=== PATIENT | female | born 1985 | race Caucasian/White ===

== ENCOUNTER 2020-11-06 17:20 | Emergency (ER) | payer OTHER, SELFPAY ==
[2020-11-06 17:42] VITALS: BP 112/54; BP 124/78; PULSE 86; PULSE 92; RESP 18; TEMP 36.9; O2SAT 98; O2SAT 99; BMI 29.5
--- NOTE | 2020-11-06 17:54 | ED_ITS ---
HPI - General Adult General Chief complaint: Overdose Stated complaint: od Time Seen by Provider: 11/06/20 17:44 Source: patient Mode of arrival: ambulatory Limitations: no limitations History of Present Illness HPI narrative: Patient comes to the emergency room after overdosing in a sober house. Patient states earlier this morning she used heroin and cocaine, she did not get the desired effect, later this afternoon she injected 2 bags of heroin. Patient states that after the 2nd bag, she started feeling very sick, she knew that she had overdosed. Patient tried walking towards the bathroom wall were it is known that there is Narcan taped to the wall, patient tried spring Narcan on herself, but she passed out before. Patient was found by another resident of the sober house. She got 1 dose of intranasal Narcan at the sober house, by the time EMS arrived, the patient was awake and alert. Patient states it was an accident, denies suicidal or homicidal ideation MD complaint: Overdose Related Data Previous Rx's Medication Instructions Recorded clonidine HCl 0.1 mg tablet 0.1 mg PO TID #90 tab 09/07/20 oxcarbazepine 300 mg tablet 300 mg PO BID #180 tab 09/07/20 Allergies Allergy/AdvReac Type Severity Reaction Status Date / Time No Known Allergies Allergy Verified 09/28/20 13:58 Review of Systems Review of Systems: Constitutional : No Weight loss, No Fever, No Chills, No Night Sweats, No Fatigue, No Malaise ENT/Mouth : No Hearing loss, No Ear Pain, No Nasal Congestion, No Sinus Pain, No Hoarseness, No sore throat, No Rhinorrhea, No Swallowing Difficulty Eyes: No Eye Pain, No Swelling, No Redness, No Foreign Body, No Discharge, No Vision Changes Cardiovascular : No Chest Pain, No SOB, No Dyspnea on Exertion, No Orthopnea, No Edema, No Palpitations Respiratory : No Cough, No Sputum, No Wheezing, No Smoke Exposure, No Dyspnea Gastrointestinal : Feeling mildly nauseous, No Vomiting, No Diarrhea, No Constipation, No abdominal Pain, No Hematochezia, No Melena Genitourinary : no irregular bleeding, No Dysuria, No Urinary Frequency, No Hematuria, No Urinary Incontinence, No Urgency, No Flank Pain, No Urinary Flow Changes, No Hesitancy Musculoskeletal : No joint pain, No Myalgias, No Joint Swelling Skin : No Skin Lesions, No rash Neuro : No Weakness, No Numbness, No Paresthesias, No Loss of Consciousness, No Dizziness, No Headache Psych : No Anxiety/Panic, No Depression, No SI/HI/AH/VH, No Social Issues, Heme/Lymph: No Bruising, No Bleeding,No Lymphadenopathy Endocrine : No Polyuria, No Polydipsia, No Temperature Intolerance PMF Past Medical History Medical History (Updated 11/06/20 @ 18:47 by Chula Kramer MD) Hepatitis C Substance abuse Family History Family History (Updated 09/28/20 @ 13:59 by Sharron Hill [facility]) Father Liver cancer Mother No problems noted. Family/Other Cancer Depression Social History Social History Advance Directives: No Advance Directives Information Provided: Yes Physical Exam Vital Signs: Vital Signs: Last Vital Signs Temp 98.4 F 11/06/20 17:42 Pulse 86 11/06/20 17:42 Resp 18 11/06/20 17:42 BP 112/54 L 11/06/20 17:42 Pulse Ox 99 11/06/20 17:42 Body Mass Index 29.5 Appearance: Alert. Oriented X3. No acute distress. Eyes: Pupils equal, round and reactive to light. ENT: Pharynx normal. Neck: Normal inspection. Neck supple. No lymph nodes noted. No crepitus CVS: Normal heart rate and rhythm. Pulses normal. Normal S1 and S2 Respiratory: No respiratory distress. Breath sounds normal. No Wheezing. No rales Abdomen: Soft and nontender. No rigidity. No distention. good BS x4 Skin: Skin warm and dry. Normal skin color. Normal skin turgor. Extremities: No lower extremity edema. No lower extremity edema. No Lacerations. No Rash Neuro: Oriented X 3. No motor deficit. No sensory deficit. Moving all extermities. No slurred speech. Course Course Course Narrative: Patient remains awake, alert, oxygen saturation 98% on room air, vital stable. The manager recovery talked to the patient. Patient was provided with home Narcan. Patient ready for discharge Discharge Plan Discharge Clinical Impression: Substance abuse Drug overdose Qualifiers: Encounter type: initial encounter Injury intent: accidental or unintentional Qualified Code(s): T50.901A - Poisoning by unspecified drugs, medicaments and biological substances, accidental (unintentional), initial encounter Patient Disposition: Home, Self-Care Instructions: Adult Overdose (ED) Additional Instructions: Please stop using drugs. Please follow-up with your primary care physician tomorrow. If you have any worsening or new symptoms, please return to the emergency room or call 911 Prescriptions: No Action clonidine HCl 0.1 mg tablet 0.1 mg PO TID Qty: 90 RF: 12 oxcarbazepine 300 mg tablet 300 mg PO BID Qty: 180 RF: 8
[2020-11-06 19:03] VITALS: BP 110/67; PULSE 90; RESP 16; O2SAT 99
--- NOTE | 2020-11-06 19:21 | MHC.RECOVSUP ---
Reason for consult o Current location: ED#17 o Identified substance use concern: Opioid - Overdose - - - ? Intervention: o o o Community resources provided o Harm reduction discussion ? Plan: o o o o o Patient to follow up with [facility] after discharge ? Additional information:pt came in after having an overdose in her residential program. I was able to call and speak w/ staff there and they were willing to take pt back. provided pt with recovery resource.
[2020-11-06] MEDS: Naloxone HCl Nasal 4 MG SPRAY NOSTRILALT (19:31)
--- NOTE | 2020-11-06 19:31 | PC.NURSE ---
nasal narcan was take home order, given to patient.
== END 2020-11-06 19:31 | disposition home or self-care (01) ==
PROVIDERS: Emergency Provider Emergency Medicine; PCP Internal Medicine
DX: T40.1X1A Poisoning by heroin, accidental (unintentional), initial encounter (principal); F11.19 Opioid abuse with unspecified opioid-induced disorder; Z71.51 Drug abuse counseling and surveillance of drug abuser; Z79.899 Other long term (current) drug therapy
CPT/HCPCS: 99283

== ENCOUNTER 2021-04-04 16:22 | Outpatient (REF) | payer OTHER, SELFPAY ==
[2021-04-04 18:08] LABS: Amphetamine Screen Urine Not Detected (Not Detect); Barbiturates, Urine Not Detected (Not Detect); Benzodiazepines Screen Urine Not Detected (Not Detect); Cannabinoid Screen Urine Not Detected (Not Detect); Cocaine Screen Urine Not Detected (Not Detect); Opiate Screen Urine Not Detected (Not Detect); Phencyclidine Screen Urine Not Detected (Not Detect)
== END 2021-04-04 16:23 | disposition home or self-care (01) ==
LOC: HO.LAB 16:22
PROVIDERS: PCP Internal Medicine; Visit Provider Internal Medicine
DX: Z51.81 Encounter for therapeutic drug level monitoring (principal)
CPT/HCPCS: 80307

== ENCOUNTER 2021-05-02 23:54 | Inpatient (IN) | payer OTHER, SELFPAY ==
[2021-05-03 00:07] VITALS: BP 128/69; PULSE 94; RESP 20; TEMP 35.8; O2SAT 95; BMI 27.7
--- NOTE | 2021-05-03 00:47 | ED_ITS ---
HPI - Psych General Chief Complaint: Psychiatric Symptoms Stated Complaint: suicidal, infection on arms Time Seen by Provider: 05/03/21 00:36 Source: patient Mode of arrival: ambulatory Limitations: no limitations History of Present Illness HPI Narrative: Patient comes to emergency room complaining of suicidal ideation. Patient states that she has been feeling depressed, states that she has thought throughout the day that she was to inject herself with each. Patient did not do so. Patient has been off her medications since at least October of 2020. States her prescribed medications before that were not helping her with the depression. Patient denies homicidal ideation Also, it was noted that the patient has cellulitis in her arms. Patient states it has been ongoing for several days now. Patient denies fever chills MD complaint: suicidal ideation and feels depressed Related Data Home Medications Medication Instructions Recorded Confirmed buprenorphine 4 mg-naloxone 1 mg 0 mg SUBLINGUAL 11/30/20 sublingual film bupropion HCl 150 mg 24 hr tablet, 150 mg PO QAM 11/30/20 extended release gabapentin 300 mg capsule 300 mg PO PRN 11/30/20 nicotine 14 mg/24 hr daily 1 patch TOPICAL DAILY 11/30/20 transdermal patch trazodone 100 mg tablet 100 mg PO BEDTIME 11/30/20 Previous Rx's Medication Instructions Recorded clonidine HCl 0.1 mg tablet 0.1 mg PO TID #90 tab 09/07/20 oxcarbazepine 300 mg tablet 300 mg PO BID #180 tab 09/07/20 nicotine (polacrilex) 4 mg gum 4 mg BUCCAL Q1H #100 ea 11/23/20 Allergies Allergy/AdvReac Type Severity Reaction Status Date / Time No Known Allergies Allergy Verified 11/30/20 15:03 Review of Systems Review of Systems: Constitutional : No Weight loss, No Fever, No Chills, No Night Sweats, No Fatigue, No Malaise ENT/Mouth : No Hearing loss, No Ear Pain, No Nasal Congestion, No Sinus Pain, No Hoarseness, No sore throat, No Rhinorrhea, No Swallowing Difficulty Eyes: No Eye Pain, No Swelling, No Redness, No Foreign Body, No Discharge, No Vision Changes Cardiovascular : No Chest Pain, No SOB, No Dyspnea on Exertion, No Orthopnea, No Edema, No Palpitations Respiratory : No Cough, No Sputum, No Wheezing, No Smoke Exposure, No Dyspnea Gastrointestinal : No Nausea, No Vomiting, No Diarrhea, No Constipation, No abdominal Pain, No Hematochezia, No Melena Genitourinary : no irregular bleeding, No Dysuria, No Urinary Frequency, No Hematuria, No Urinary Incontinence, No Urgency, No Flank Pain, No Urinary Flow Changes, No Hesitancy Musculoskeletal : No joint pain, No Myalgias, No Joint Swelling Skin : Complaining of pain in her forearms bilaterally, redness Neuro : No Weakness, No Numbness, No Paresthesias, No Loss of Consciousness, No Dizziness, No Headache Psych : No Anxiety/Panic, complaining of chronic depression, contemplating suicidal ideation by injecting herself with bleach, no HI Heme/Lymph: No Bruising, No Bleeding,No Lymphadenopathy Endocrine : No Polyuria, No Polydipsia, No Temperature Intolerance PMFSH Past Medical History Medical History Hepatitis C Substance abuse Surgical History No significant past surgical history Family History Family History (Updated 09/28/20 @ 13:59 by Sharron Hill [facility]) Father Liver cancer Mother No problems noted. Family/Other Cancer Depression Social History Social History (Updated 11/30/20 @ 15:05 by X[facility]) Alcohol intake: never Advance Directives: No Advance Directives Information Provided: No Patient : No Physical Exam Vital Signs: Vital Signs: Last Vital Signs Temp 96.5 F L 05/03/21 00:07 Pulse 94 05/03/21 00:07 Resp 20 05/03/21 00:07 BP 128/69 05/03/21 00:07 Pulse Ox 95 05/03/21 00:07 Body Mass Index 27.7 Appearance: Alert. Oriented X3. No acute distress. Eyes: Pupils equal, round and reactive to light. ENT: Pharynx normal. Neck: Normal inspection. Neck supple. No lymph nodes noted. No crepitus, see skin below CVS: Normal heart rate and rhythm. Pulses normal. Normal S1 and S2 Respiratory: No respiratory distress. Breath sounds normal. No Wheezing. No rales Abdomen: Soft and nontender. No rigidity. No distention. good BS x4 Skin: Skin warm and dry. Needle track velazco in the neck See extremities below Extremities: No lower extremity edema. Patient has erythema in bilateral forearms, needle track velazco. Patient has cellulitis, no obvious abscesses. Patient also has needle track velazco in both of her lower extremities at the ankles Neuro: Oriented X 3. No motor deficit. No sensory deficit. Moving all extermities. No slurred speech. Course Course Course Narrative: Patient does not have fever, white blood cell count within normal limits, lactic acid normal. At this time, sepsis is not suspected. Patient was given the 1st dose of Bactrim. Patient will need scheduled back. Patient is under Section 12 due to suicidal ideation. [facility] consult pending. Senna given to Dr. Fisher [facility] - Psych Lab Data Result diagrams: 05/03/21 01:12 05/03/21 01:12 Labs: Lab Results 05/03/21 05/03/21 05/03/21 Range/Units 00:31 00:31 00:31 WBC (4.8-10.8) X10*3/uL RBC (4.20-5.50) X10*6/uL Hgb (12.0-16.0) g/dl Hct (37-47) % MCV (80-98) fL MCH (27.0-33.0) pg MCHC (31.0-35.0) g/dl RDW (11.0-16.0) % Plt Count (160-400) X10*3/uL MPV (9.4-12.3) fL Immature Gran % (Auto) (0.0-0.4) % Neut % (Auto) (45-73) % Lymph % (Auto) (20-40) % [place] % (Auto) (2-11) % Eos % (Auto) (0-4) % Baso % (Auto) (0-2) % Lymph # (Auto) (1.2-4.9) X10*3/uL [place] # (Auto) (0.1-1.2) X10*3/uL Eos # (Auto) (0.0-0.4) X10*3/uL Baso # (Auto) (0.0-0.2) X10*3/uL Abs Immat Gran (auto) (0.00-0.03) X10*3/uL Absolute Neuts (auto) (2.0-8.3) X10*3/uL Absolute Nucleated RBC (0.0-0.012) X10*3/uL Nucleated RBC % (auto) (0.0-0.2) /100WBC Sodium (135-145) mmol/L Potassium (3.3-5.1) mmol/L Chloride (96-108) mmol/L Carbon Dioxide (22-29) mmol/L Anion Gap (12-20) BUN (9-16) mg/dL Creatinine (0.5-1.4) mg/dL Estim Creat Clear Calc Estimated GFR Random Glucose (60-115) mg/dL Lactic Acid (0.5-2.0) mmol/L Calcium (8.4-10.2) mg/dL Magnesium (1.6-2.6) mg/dL Total Bilirubin (0.0-1.0) mg/dL Direct Bilirubin (0.0-0.5) mg/dL AST (5-31) U/L ALT (0-31) U/L Alkaline Phosphatase (39-117) U/L Total Protein (6.5-8.0) g/dL Albumin (3.5-5.0) g/dL Urine Color YELLOW Urine Appearance HAZY Urine pH 6.0 (5.0-8.0) Ur Specific [place] >= 1.030 H (1.005-1.025) Urine Protein TRACE (NEG-TRACE) MG/DL Urine Glucose (UA) NEG (NEG) MG/DL Urine Ketones 5 (NEG) MG/DL Urine Blood NEG (NEG) Urine Nitrite NEG (NEG) Ur Leukocyte Esterase NEG (NEG) Urine Test NEGATIVE (NEGATIVE) Urine Opiates Screen POSITIVE H (Not Detect) Ur Barbiturates Screen Not Detected (Not Detect) Ur Phencyclidine Scrn Not Detected (Not Detect) Ur Amphetamines Screen Not Detected (Not Detect) U Benzodiazepines Scrn Not Detected (Not Detect) Urine Cocaine Screen POSITIVE H (Not Detect) U Marijuana (THC) Screen POSITIVE H (Not Detect) COVID-19 (JOAO) (Negative) COVID-19 Clin Com 05/03/21 05/03/21 05/03/21 Range/Units 00:41 01:12 01:12 WBC 7.8 (4.8-10.8) X10*3/uL RBC 4.00 L (4.20-5.50) X10*6/uL Hgb 11.0 L (12.0-16.0) g/dl Hct 34.7 L (37-47) % MCV 86.8 (80-98) fL MCH 27.5 (27.0-33.0) pg MCHC 31.7 (31.0-35.0) g/dl RDW 14.0 (11.0-16.0) % Plt Count 251 (160-400) X10*3/uL MPV 9.6 (9.4-12.3) fL Immature Gran % (Auto) 0.4 (0.0-0.4) % Neut % (Auto) 69.1 (45-73) % Lymph % (Auto) 23.3 (20-40) % [place] % (Auto) 6.0 (2-11) % Eos % (Auto) 0.9 (0-4) % Baso % (Auto) 0.3 (0-2) % Lymph # (Auto) 1.8 (1.2-4.9) X10*3/uL [place] # (Auto) 0.5 (0.1-1.2) X10*3/uL Eos # (Auto) 0.1 (0.0-0.4) X10*3/uL Baso # (Auto) 0.0 (0.0-0.2) X10*3/uL Abs Immat Gran (auto) 0.03 (0.00-0.03) X10*3/uL Absolute Neuts (auto) 5.4 (2.0-8.3) X10*3/uL Absolute Nucleated RBC 0.000 (0.0-0.012) X10*3/uL Nucleated RBC % (auto) 0.0 (0.0-0.2) /100WBC Sodium 139 (135-145) mmol/L Potassium 3.7 (3.3-5.1) mmol/L Chloride 103 (96-108) mmol/L Carbon Dioxide 27 (22-29) mmol/L Anion Gap 13 (12-20) BUN 12 (9-16) mg/dL Creatinine 0.75 (0.5-1.4) mg/dL Estim Creat Clear Calc 88.5 Estimated GFR > 60 Random Glucose 118 H (60-115) mg/dL Lactic Acid (0.5-2.0) mmol/L Calcium 9.1 (8.4-10.2) mg/dL Magnesium 2.2 (1.6-2.6) mg/dL Total Bilirubin (0.0-1.0) mg/dL Direct Bilirubin (0.0-0.5) mg/dL AST (5-31) U/L ALT (0-31) U/L Alkaline Phosphatase (39-117) U/L Total Protein (6.5-8.0) g/dL Albumin (3.5-5.0) g/dL Urine Color Urine Appearance Urine pH (5.0-8.0) Ur Specific [place] (1.005-1.025) Urine Protein (NEG-TRACE) MG/DL Urine Glucose (UA) (NEG) MG/DL Urine Ketones (NEG) MG/DL Urine Blood (NEG) Urine Nitrite (NEG) Ur Leukocyte Esterase (NEG) Urine Test (NEGATIVE) Urine Opiates Screen (Not Detect) Ur Barbiturates Screen (Not Detect) Ur Phencyclidine Scrn (Not Detect) Ur Amphetamines Screen (Not Detect) U Benzodiazepines Scrn (Not Detect) Urine Cocaine Screen (Not Detect) U Marijuana (THC) Screen (Not Detect) COVID-19 (JOAO) Negative (Negative) COVID-19 Clin Com See Note 05/03/21 05/03/21 Range/Units 01:12 01:12 WBC (4.8-10.8) X10*3/uL RBC (4.20-5.50) X10*6/uL Hgb (12.0-16.0) g/dl Hct (37-47) % MCV (80-98) fL MCH (27.0-33.0) pg MCHC (31.0-35.0) g/dl RDW (11.0-16.0) % Plt Count (160-400) X10*3/uL MPV (9.4-12.3) fL Immature Gran % (Auto) (0.0-0.4) % Neut % (Auto) (45-73) % Lymph % (Auto) (20-40) % [place] % (Auto) (2-11) % Eos % (Auto) (0-4) % Baso % (Auto) (0-2) % Lymph # (Auto) (1.2-4.9) X10*3/uL [place] # (Auto) (0.1-1.2) X10*3/uL Eos # (Auto) (0.0-0.4) X10*3/uL Baso # (Auto) (0.0-0.2) X10*3/uL Abs Immat Gran (auto) (0.00-0.03) X10*3/uL Absolute Neuts (auto) (2.0-8.3) X10*3/uL Absolute Nucleated RBC (0.0-0.012) X10*3/uL Nucleated RBC % (auto) (0.0-0.2) /100WBC Sodium (135-145) mmol/L Potassium (3.3-5.1) mmol/L Chloride (96-108) mmol/L Carbon Dioxide (22-29) mmol/L Anion Gap (12-20) BUN (9-16) mg/dL Creatinine (0.5-1.4) mg/dL Estim Creat Clear Calc Estimated GFR Random Glucose (60-115) mg/dL Lactic Acid 0.6 (0.5-2.0) mmol/L Calcium (8.4-10.2) mg/dL Magnesium (1.6-2.6) mg/dL Total Bilirubin 0.5 (0.0-1.0) mg/dL Direct Bilirubin 0.2 (0.0-0.5) mg/dL AST 18 (5-31) U/L ALT 11 (0-31) U/L Alkaline Phosphatase 78 (39-117) U/L Total Protein 6.7 (6.5-8.0) g/dL Albumin 4.1 (3.5-5.0) g/dL Urine Color Urine Appearance Urine pH (5.0-8.0) Ur Specific [place] (1.005-1.025) Urine Protein (NEG-TRACE) MG/DL Urine Glucose (UA) (NEG) MG/DL Urine Ketones (NEG) MG/DL Urine Blood (NEG) Urine Nitrite (NEG) Ur Leukocyte Esterase (NEG) Urine Test (NEGATIVE) Urine Opiates Screen (Not Detect) Ur Barbiturates Screen (Not Detect) Ur Phencyclidine Scrn (Not Detect) Ur Amphetamines Screen (Not Detect) U Benzodiazepines Scrn (Not Detect) Urine Cocaine Screen (Not Detect) U Marijuana (THC) Screen (Not Detect) COVID-19 (JOAO) (Negative) COVID-19 Clin Com Discharge Plan Discharge Clinical Impression: Suicidal ideation, Cellulitis Instructions: Cellulitis (ED) Additional Instructions: Please follow-up with your primary care physician tomorrow. If you have any worsening or new symptoms, please return to the emergency room or call 911 Prescriptions: No Action clonidine HCl 0.1 mg tablet 0.1 mg PO TID Qty: 90 RF: 12 oxcarbazepine 300 mg tablet 300 mg PO BID Qty: 180 RF: 8 nicotine (polacrilex) [Nicorette] 4 mg gum 4 mg buccal Q1H Qty: 100 RF: 8 buprenorphine-naloxone 4-1 mg film 0 mg sublingual RF: 0 gabapentin 300 mg capsule 300 mg PO PRNRF: 0 nicotine 14 mg/24 hr patch 24 hour 1 patch topical DAILY RF: 0 bupropion HCl 150 mg tablet extended release 24 hr 150 mg PO QAM RF: 0 trazodone 100 mg tablet 100 mg PO BEDTIME RF: 0
[2021-05-03 00:51] LABS: Glucose Urine UA NEG (NEG); Leukocyte Esterase Urine NEG (NEG); Nitrite Urine NEG (NEG); Specific Gravity - Urine >= 1.030 (1.005-1.025); Urine Blood NEG (NEG); Urine Ketones 5 MG/DL (NEG); Urine Protein TRACE MG/DL (NEG-TRACE)
[2021-05-03 00:52] LABS: Appearance Urine HAZY; Color Urine YELLOW; UACC CULT NO
[2021-05-03 00:53] LABS: UPreg QC Valid YES; Urine Pregnancy NEGATIVE (NEGATIVE)
[2021-05-03 01:02] LABS: COVID-19 Test Negative (Negative); IDNOW Serial# 9DD0AD1C
[2021-05-03 01:20] LABS: Amphetamine Screen Urine Not Detected (Not Detect); Barbiturates, Urine Not Detected (Not Detect); Benzodiazepines Screen Urine Not Detected (Not Detect); Cannabinoid Screen Urine POSITIVE (Not Detect); Cocaine Screen Urine POSITIVE (Not Detect); Opiate Screen Urine POSITIVE (Not Detect); Phencyclidine Screen Urine Not Detected (Not Detect)
[2021-05-03 01:20] LABS: Basophils Percent Auto 0.3 % (0-2); Eosinophils Absolute Auto 0.1 X10*3/uL (0.0-0.4); Eosinophils Percent Auto 0.9 % (0-4); Hematocrit 34.7 % (37-47); Imm Gran Abs Auto 0.03 X10*3/uL (0.00-0.03); Imm Gran Pct Auto 0.4 % (0.0-0.4); Lymphocytes Absolute Auto 1.8 X10*3/uL (1.2-4.9); Lymphocytes Percent Auto 23.3 % (20-40); MANUAL DIFF FLAG NO; Mean Corpuscular HGB Conc 31.7 g/dl (31.0-35.0); Mean Corpuscular Hemoglobin 27.5 pg (27.0-33.0); Mean Corpuscular Volume 86.8 fL (80-98); Mean Platelet Volume 9.6 fL (9.4-12.3); Monocytes Absolute Auto 0.5 X10*3/uL (0.1-1.2); Neutrophils Absolute Auto 5.4 X10*3/uL (2.0-8.3); Neutrophils Percent Auto 69.1 % (45-73); Platelet Count 251 X10*3/uL (160-400); White Blood Count 7.8 X10*3/uL (4.8-10.8)
[2021-05-03 01:37] LABS: Lactic Acid 0.6 mmol/L (0.5-2.0)
--- NOTE | 2021-05-03 01:39 | PC.NURSE ---
Referral was sent to [facility] via smart-sheet, called to confirm the receipt of referral, spoke with Andrew/confirmed receipt of referral, no clinician available for tonight, patient will evaluated in the morning, Bactrim administered as ordered, will continue to monitor.
[2021-05-03 01:42] LABS: Alanine Aminotransferase 11 U/L (0-31); Albumin Level 4.1 g/dL (3.5-5.0); Alkaline Phosphatase 78 U/L (39-117); Aspartate Amino Transferase 18 U/L (5-31); Bilirubin Direct 0.2 mg/dL (0.0-0.5); Bilirubin Total 0.5 mg/dL (0.0-1.0); Total Protein 6.7 g/dL (6.5-8.0)
[2021-05-03 01:53] LABS: Anion Gap 13 (12-20); Blood Urea Nitrogen 12 mg/dL (9-16); Calcium 9.1 mg/dL (8.4-10.2); Carbon Dioxide 27 mmol/L (22-29); Chloride 103 mmol/L (96-108); Creatinine Clr Calc Pharmacy 88.5; Estimated Glomerular Filt Rate > 60; Glucose Random 118 mg/dL (60-115); Magnesium 2.2 mg/dL (1.6-2.6); Potassium 3.7 mmol/L (3.3-5.1); Sodium 139 mmol/L (135-145)
[2021-05-03 02:09] LABS: RBC Urine 0 /HPF (0); Squamous Epithelial Cell Urine 3+ /LPF; WBC Urine 0-2 /HPF (0-4)
[2021-05-03 02:10] LABS: Amorphous Sediment Urine 4+ /LPF
[2021-05-03 02:10] LABS: Ethanol < 10 mg/dL
--- NOTE | 2021-05-03 06:03 | PC.NURSE ---
Patient finally in bed appears sleeping, patient was up until 0530 am, no distress was reported, awaiting to be seen by N, will continue to monitor.
[2021-05-03 07:25] VITALS: BP 106/59; PULSE 81; RESP 18; TEMP 36.3; O2SAT 96
[2021-05-03 08:48] VITALS: PULSE 81
[2021-05-03] MEDS: LORazepam 1 MG TABLET 2 MG PO ×2 (09:04→20:21)
--- NOTE | 2021-05-03 09:07 | PC.NURSE ---
Pt refused suboxone, said she can not take it right now, and needs to wait a while before she can take it. Pt informed that ED does not prescribe methadone, which pt was agreeable to. Accepting of ativan (see Mar). Cellulitis on bilat. anticubitals warm to touch, pink, slightly swollen, tender when lightly touched. Pt resting in bed, waiting to be seen by BHN.
--- NOTE | 2021-05-03 10:44 | PC.NURSE ---
Pt asleep at current. No signs of distress. RR even and unlabored.
--- NOTE | 2021-05-03 11:28 | PC.NURSE ---
PT REQUESTING FOOD, WAS UNABLE TO EAT BREAKFAST THIS AM. GIVEN CRACKERS AND PB. JUST SEEN BY CARE TEAM. PT REPORTS EXPERIENCING WD SXS, REFUSED SUBOXONE OFFERED. RECOVERY TEAM AT BEDSIDE AT THIS TIME.
--- NOTE | 2021-05-03 11:45 | MHC.RECOVRN ---
T/w met with pt in [facility] after pt had declined Suboxone for withdrawal symptoms. Pts last use 05/02 approx 7PM. Pt reports using heroin, 2 bundles daily, IV, as well as $500 cocaine daily, IV since last March. At that time she had received Suboxone 3 days after last use and experienced precipitated withdrawal. Pt prefers methadone to help with withdrawal symptoms. Currently, COWS 15. Pt is flushed, restless, anxiousm and reports body aches and diarrhea. Case discussed with pts RN, Jeniffer BALDERAS, as well as Lacie Vincent APRN.
--- NOTE | 2021-05-03 11:55 | MHC.RECOVSUP ---
Recovery Support note: Patient is 35 year old Turkmen speaking female who presented to [facility] ED reporting SI with a plan and recent heroin and cocaine use. CARE Team attempted to do a crisis evaluation however patient was unable to engage due withdrawal symptoms and level of drowsiness. This parts data writer met with patient to discuss withdrawal management. Patient reports last use of heroin and cocaine on 05/02 around 1999. Patient reports she does not want to take Suboxone due to experiencing precipitated withdrawal in the past. Patient reports she took a small amount of Suboxone on M5 after 3 days of not using and experienced precipitated withdrawal. Patient reports she is agreeable to receiving methadone. Plan for Recovery Support Nurse to follow up with patient. This parts data writer discussed case with the Recovery Support Team and CARE Team.
[2021-05-03 15:03] VITALS: BP 107/55; PULSE 76; O2SAT 96
--- NOTE | 2021-05-03 16:39 | MHC.RECOVSUP ---
Recovery Support note: This flex o writer operator checked in with patient to discuss withdrawal symptoms. Patient reports significant improvement from this morning. States she feels a bit sweaty but that is her only symptom. Patient reports at this time she is not interested in continuing methadone maintenance after discharge and that she only wants it for detox. Discussed case with Lacie Vincent NP.
--- NOTE | 2021-05-03 17:22 | P.EN_ITS ---
Event Note Date of Service: 05/03/21 Event Note: Addiction note: Patient is a 35yo female with opioid use disorder awaiting psychiatric admission. Seen by RS RN earlier in the AM and noted to be in acute withdrawal (please see recovery support team notes for further details) Pt prefers methadone d/t hx of precipitated withdrawal with buprenorphine. 10mg methadone administered earlier this AM with good effect. N/V stopped. Pt seen this afternoon and noted to be diaphoretic, still experiencing joint pain and involuntary leg movements noted while patient was asleep. Pt verbalizing that she does not wish to continue methadone detention, and would like to be tapered only. Plan: -additional 10mg methadone this evening (total of 20mg) -monitor for oversedation and hold PM dose if necessary - 10mg in AM tomorrow -5mg the following day
[2021-05-03 19:57] VITALS: BP 107/65; PULSE 75; RESP 18; TEMP 36.8; O2SAT 97
[2021-05-03 20:54] VITALS: BP 112/62; PULSE 82; RESP 16; TEMP 36.5; O2SAT 97
--- NOTE | 2021-05-03 23:13 | PC.ADMIT ---
Addendum entered by Joy Chilel RN 05/03/21 23:28: PT. IS ON A COWS, SHE CURRENTLY DISPLAYS WITHDRAWAL SYMPTOMS, PRN'S AVAILABLE Original Note: PT. IS A 35 YEAR OLD WHITE PERSIAN SPEAKING FEMALE WHO PRESENTS TO M 5 FROM THE [facility] ED AT APPROX. 21:45 ON A CV STATUS. PT. IS COVID NEG., UTOX POS. FOR OPIOIDS, CANNABIS AND COCAINE. PT. HAS A HX OF IV HEROIN USE, SHE WAS LAST ON M 5 IN JUNE 2020. PT. BROUGHT HERSELF TO THE [facility] ED WITH THOUGHTS OF INJECTING BLEACH INTO HER VEINS. PT. DENIED SI AT PRESENT TIME, HER AFFECT WAS FLAT, SHE WAS FATIGUED, DEPRESSED AND TOO TIRED TO COMPLETE ADMISSION PROCESS. PT.'S BILATERAL LOWER ARMS ARE INFECTED DUE TO IV DRUG INJECTIONS, SHE HAS STARTED ANTIBIOTICS FOR HER WOUNDS YESTERDAY IN THE ED. PT. IS A SMOKER, NICOTINE REPLACEMENT ORDERED. PT. IS ON 15 MIN. SAFETY CHECKS, SHE REPORTED TO FEEL SAFE ON UNIT. MEDICATION ORDERS RECEIVED FROM DOC, PT. KNOWS THE UNIT AND DID NOT NEED AN ORIENTATION. VS, STABLE.
[2021-05-04 08:54] LABS: Alanine Aminotransferase 8 U/L (0-31); Albumin Level 3.6 g/dL (3.5-5.0); Alkaline Phosphatase 67 U/L (39-117); Anion Gap 11 (12-20); Aspartate Amino Transferase 14 U/L (5-31); Bilirubin Direct 0.2 mg/dL (0.0-0.5); Bilirubin Total 0.3 mg/dL (0.0-1.0); Blood Urea Nitrogen 13 mg/dL (9-16); Calcium 8.8 mg/dL (8.4-10.2); Carbon Dioxide 25 mmol/L (22-29); Chloride 109 mmol/L (96-108); Creatinine Clr Calc Pharmacy 89.7; Estimated Glomerular Filt Rate > 60; Glucose Fasting 93 mg/dL (60-99); Potassium 4.4 mmol/L (3.3-5.1); Sodium 141 mmol/L (135-145)
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
[2021-05-04 16:27] VITALS: RESP 14
[2021-05-05 06:00] VITALS: BP 106/56; PULSE 66; RESP 12; TEMP 36.3; O2SAT 99
[2021-05-05 07:54] VITALS: BP 95/54; PULSE 78; RESP 18; TEMP 36.2; O2SAT 99
--- NOTE | 2021-05-05 08:05 | HO.PSYCHPN ---
Subjective Subjective Date of Service: 05/05/21 Reason For Visit: Depression Subjective Notes: Conditional Voluntary Interim History: Patient was seen in rounds today. She has been exhibiting withdrawal symptoms and the methadone continues to be helpful. Additional medications including clonidine 0.1 mg t.i.d. p.r.n., Imodium 2 mg Q 4 hours p.r.n. and Vistaril 25 mg q.6 p.r.n. were ordered. She denies any side effects. Eating and sleeping adequately. No SI. No other changes were made. Current medications and labs were reviewed. Medication Compliance: Yes Side effects from medications: No Attending Groups: Intermittent Review of Systems Acute medical concerns: No Medical Review of Systems: unchanged Review of Systems: Review of systems is negative by system except for sinus symptoms of opiate withdrawal Mental Status Exam Mental Status Exam Narrative: Patient was seen on rounds today. She is alert, oriented and pleasant. Soft-spoken speech. Moderate eye contact. Affect is appropriate and contained. Moderate anxiety present. No signs of psychosis. No SI. Cognitively intact. Judgment is intact Depressive Symptoms: Increased Anxiety Diagnostics Vital Signs (24Hr): Vital Signs - 24 hr 05/04/21 16:27 05/05/21 06:00 05/05/21 07:54 Temperature 97.4 F 97.2 F Pulse Rate 66 78 Respiratory Rate 14 12 18 Blood Pressure 106/56 L 95/54 L Pulse Oximetry 99 99 Body Mass Index 27.7 Labs Results: 05/03/21 01:12 05/04/21 08:00 Labs: Laboratory Results - last 48 hr 05/04/21 08:00 Sodium 141 Potassium 4.4 Chloride 109 H Carbon Dioxide 25 Anion Gap 11 L BUN 13 Creatinine 0.74 Estim Creat Clear Calc 89.7 Estimated GFR > 60 Fasting Glucose 93 Calcium 8.8 Total Bilirubin 0.3 Direct Bilirubin 0.2 AST 14 ALT 8 Alkaline Phosphatase 67 Total Protein 6.0 L Albumin 3.6 Medications Medications Current Medications Generic Name Dose Route Start Last Admin Trade Name Freq PRN Reason Stop Dose Admin Acetaminophen 650 mg 05/03/21 20:54 Acetaminophen 325 Mg Tablet PO Q6H PRN Headache/Pain Mild Scale (1-3) Al Hydroxide/Mg Hydroxide 30 ml 05/03/21 20:54 Magnesium Hydrox/Alum Hydrox 30 Ml Oral.Susp PO Q6H PRN Heartburn/Nausea Hydroxyzine HCl 25 mg 05/03/21 20:54 Hydroxyzine Hcl 25 Mg Tablet PO BEDTIME PRN Anxiety Magnesium Hydroxide 30 ml 05/03/21 20:54 Milk Of Magnesia 30 Ml Oral.Susp PO DAILY PRN Constipation Methadone HCl 10 mg 05/05/21 10:00 Methadone Hcl 1 Mg/0.1 Ml Oral.Conc PO 05/05/21 10:01 ONCE@1000 CARROLL Methadone HCl 5 mg 05/06/21 10:00 Methadone Hcl 5 Mg Tablet PO 05/06/21 10:01 ONCE@1000 CARROLL Trazodone HCl 100 mg 05/03/21 20:54 Trazodone Hcl 100 Mg Tablet PO BEDTIME PRN Insomnia Allergies Allergies Allergy/AdvReac Type Severity Reaction Status Date / Time No Known Allergies Allergy Verified 11/30/20 15:03 Assessment & Plan Assessment & Plan (1) MDD (major depressive disorder), recurrent episode, severe: Qualifiers: Psychotic features: without psychotic features Qualified Code(s): F33.2 - Major depressive disorder, recurrent severe without psychotic features Status: Acute Code(s): F33.2 - Major depressive disorder, recurrent severe without psychotic features (2) Opioid use disorder: Status: Acute Code(s): F11.99 - Opioid use, unspecified with unspecified opioid-induced disorder (3) Opioid withdrawal: Status: Acute Code(s): F11.23 - Opioid dependence with withdrawal (4) Cocaine dependence with withdrawal: Status: Acute Code(s): F14.23 - Cocaine dependence with withdrawal (5) Chronic post-traumatic stress disorder (PTSD): Status: Acute Code(s): F43.12 - Post-traumatic stress disorder, chronic (6) Bulimia: Status: Acute Code(s): F50.2 - Bulimia nervosa Assessment and Plan: IMPRESSION: Patient is a he 35-year-old female with history of PTSD, bulimia depression and opiate and cocaine abuse who presents for depression and suicidal ideation in the face of ongoing substance abuse and being unmedicated. Patient is currently severely depressed, in both cocaine and opiate withdrawal currently resulting in her being a limited historian; interview was cut short by patient's emotions and follow-up discussion is needed to better assess for history of manic episode and possible bipolar depression. -patient agrees she is too exhausted and emotional to discuss medication treatment at this point however she would like to consider something for depression and is open to naltrexone, last use of heroin 05/03 Plan: Patient on CV Q 15 minutes checks Patient on methadone taper Will hold off starting medications for depression while she withdrawals further Will strongly consider mood stabilizer as an option given potential for history of manic episode and bipolar depression -patient became suicidal on Prozac -abused Wellbutrin -does not want any medication that causes weight gain given she is bulemic Greater than 50% of the session was spent on counseling and/or coordination of care Reason for contiued inpatient stay Substantial Risk for: harm to self
[2021-05-05] MEDS: hydrOXYzine HCL 25 MG TABLET PO (08:30)
[2021-05-05 16:00] VITALS: PULSE 62
[2021-05-05 16:05] VITALS: BP 111/68; PULSE 62; TEMP 36.6
[2021-05-06 08:20] VITALS: PULSE 80
--- NOTE | 2021-05-06 09:24 | P.PNPSI_ITS ---
Subjective Subjective Date of Service: 05/06/21 Reason For Visit: Depression Interim History: Patient was seen in rounds today. She continues to be isolative and on the [place] is. She is feeling more comfortable with regards to her detoxification. Eating a little better and sleeping a little better. No complaints or side effects. No changes were made today and we will continue the current plans Review of Systems Review of Systems Yes all other systems are reviewed and are negative Mental Status Exam Mental Status Exam Narrative: Patient was seen on rounds today. She is alert, oriented and pleasant. Soft-spoken speech. Moderate eye contact. Affect is appropriate and contained. Moderate anxiety present. No signs of psychosis. No SI. Cognitively intact. Judgment is intact Depressive Symptoms: Increased Anxiety Diagnostics Vital Signs (24Hr): Vital Signs - 24 hr 05/05/21 16:05 Temperature 97.8 F Pulse Rate 62 Blood Pressure 111/68 Body Mass Index 27.7 Labs Results: 05/03/21 01:12 05/04/21 08:00 Medications Medications Current Medications Generic Name Dose Route Start Last Admin Trade Name Floydq PRN Reason Stop Dose Admin Acetaminophen 650 mg 05/03/21 20:54 Acetaminophen 325 Mg Tablet PO Q6H PRN Headache/Pain Mild Scale (1-3) Al Hydroxide/Mg Hydroxide 30 ml 05/03/21 20:54 Magnesium Hydrox/Alum Hydrox 30 Ml Oral.Susp PO Q6H PRN Heartburn/Nausea Clonidine HCl 0.1 mg 05/05/21 08:01 Clonidine Hcl 0.1 Mg Tablet PO TID PRN Opiate Withdrawal Protocol Hydroxyzine HCl 25 mg 05/03/21 20:54 Hydroxyzine Hcl 25 Mg Tablet PO BEDTIME PRN Anxiety Hydroxyzine HCl 25 mg 05/05/21 08:01 05/05/21 08:30 Hydroxyzine Hcl 25 Mg Tablet PO 25 mg Q6H PRN Administration Anxiety Loperamide HCl 2 mg 05/05/21 08:01 Loperamide Hcl 2 Mg Capsule PO Q4H PRN Diarrhea Magnesium Hydroxide 30 ml 05/03/21 20:54 Milk Of Magnesia 30 Ml Oral.Susp PO DAILY PRN Constipation Methadone HCl 5 mg 05/06/21 10:00 05/06/21 08:20 Methadone Hcl 1 Mg/0.1 Ml Oral.Conc PO 05/06/21 10:01 5 mg ONCE@1000 CARROLL Administration Trazodone HCl 100 mg 05/03/21 20:54 Trazodone Hcl 100 Mg Tablet PO BEDTIME PRN Insomnia Trimethoprim/Sulfamethoxazole 1 tab 05/05/21 09:00 05/06/21 08:19 Sulfamethox/Trimeth 800/160 1 Tab Tablet PO 05/08/21 08:59 1 tab Q12H CARROLL Administration Allergies Allergies Allergy/AdvReac Type Severity Reaction Status Date / Time No Known Allergies Allergy Verified 11/30/20 15:03 Assessment & Plan Assessment & Plan (1) MDD (major depressive disorder), recurrent episode, severe: Qualifiers: Psychotic features: without psychotic features Qualified Code(s): F33.2 - Major depressive disorder, recurrent severe without psychotic features Status: Acute Code(s): F33.2 - Major depressive disorder, recurrent severe without psychotic features (2) Opioid use disorder: Status: Acute Code(s): F11.99 - Opioid use, unspecified with unspecified opioid-induced disorder (3) Opioid withdrawal: Status: Acute Code(s): F11.23 - Opioid dependence with withdrawal (4) Cocaine dependence with withdrawal: Status: Acute Code(s): F14.23 - Cocaine dependence with withdrawal (5) Chronic post-traumatic stress disorder (PTSD): Status: Acute Code(s): F43.12 - Post-traumatic stress disorder, chronic (6) Bulimia: Status: Acute Code(s): F50.2 - Bulimia nervosa Assessment and Plan: IMPRESSION: Patient is a he 35-year-old female with history of PTSD, bulimia depression and opiate and cocaine abuse who presents for depression and suicidal ideation in the face of ongoing substance abuse and being unmedicated. Patient is currently severely depressed, in both cocaine and opiate withdrawal currently resulting in her being a limited historian; interview was cut short by patient's emotions and follow-up discussion is needed to better assess for history of manic episode and possible bipolar depression. -patient agrees she is too exhausted and emotional to discuss medication treatment at this point however she would like to consider something for depression and is open to naltrexone, last use of heroin 05/03 Plan: Patient on CV Q 15 minutes checks Patient on methadone taper Will hold off starting medications for depression while she withdrawals further Will strongly consider mood stabilizer as an option given potential for history of manic episode and bipolar depression -patient became suicidal on Prozac -abused Wellbutrin -does not want any medication that causes weight gain given she is bulemic Greater than 50% of the session was spent on counseling and/or coordination of care Reason for contiued inpatient stay Substantial Risk for: other
[2021-05-06 11:50] VITALS: BP 120/73; PULSE 95
[2021-05-06] MEDS: cloNIDine HCL 0.1 MG TABLET PO ×2 (11:50→15:53)
[2021-05-06] MEDS: Acetaminophen 325 MG TABLET 650 MG PO (11:50)
[2021-05-06 13:50] VITALS: BP 113/71; PULSE 101; TEMP 37.1
--- NOTE | 2021-05-06 14:53 | PC.NURSE ---
Pt signed a 3-day notice. I need go, get out of here I don't need to be here anymore . Pt became very anxious when she was unable to get intouch with her and child.. Reassured.
[2021-05-06 15:08] VITALS: BP 120/73; PULSE 95; RESP 16; TEMP 36.6; O2SAT 98
[2021-05-06 15:53] VITALS: BP 113/71; PULSE 101
[2021-05-06 16:00] VITALS: PULSE 101
[2021-05-06] MEDS: traZODone HCL 100 MG TABLET PO (20:10)
[2021-05-06] MEDS: hydrOXYzine HCL 25 MG TABLET PO (21:28)
[2021-05-07 06:10] VITALS: BP 121/59; PULSE 69; RESP 16; TEMP 36.6; O2SAT 99
[2021-05-07 07:52] VITALS: BP 114/64; PULSE 105
[2021-05-07] MEDS: cloNIDine HCL 0.1 MG TABLET PO (07:52)
[2021-05-07] MEDS: methADONE HCl 5 MG TABLET PO (10:39)
--- NOTE | 2021-05-07 10:59 | HO.PSYCHPN ---
Subjective Subjective Date of Service: 05/07/21 Reason For Visit: Depression Subjective Notes: 3 Day Interim History: patient reports she is feeling better. Her depression is not as bad, though it definitely remains but suicidal ideation has fully resolved. She says that this suicidal thinking is mostly just driven by cocaine addiction and the quickly alternating cycle from high to a crashing depression puts her in a suicidal thinking mode. she says that there are mood is better, she remains sad about although hurt I have caused. patient says most bothersome is her anxiety. She says she is feeling like she wants to crawl out of her skin In asks if she could get back on gabapentin which she reports she has never abused. Patient understands the risk of gabapentin when combined with substance abuse and agrees to get on Suboxone as well to protect her from relapse. Patient says that she goes to and in the past was sober from 2012 to around 2018 on Wellbutrin and gabapentin only; however she agrees then she the vulnerable to relapse and like to get on Suboxone. Chief Technician X Ray discussed naltrexone and Vivitrol; patient said that anything with needles is a big trigger to relapse. Chief Technician X Ray also discussed again her history of manic episodes. She says it is a little hard to tell because of all the drug use and she knows that PTSD can sometimes look like it, but she does describe distinct 2-3 day periods where she has a racing mind gets, is likely talking fast, gets very little sleep and does regretable behaviors like stealing from people she cares about and prostitution. Chief Technician X Ray discussed risks and benefits of mood stabilizer and patient agrees to trial of ziprasidone. Patient has PTSD symptoms of flashbacks and hypervigilance, but denies nightmares. patient says she has been eating better. She purposely does not eat very much so that she will not feel the urge to purge Patient says she put in 3 day notice just as a safety and K she really wants to leave however she does want to remain on unit for treatment. Mental Status Exam Mental Status Exam Narrative: Pt is alert and oriented; behavior is cooperative, friendly and calm; patient is not in distress; dressed in hospital gown with adequate hygiene; mood is described as better and affect congruent; eye contact appropriate; Speech is normal rate, volume and prosody and not pressured; no psychomotor agitation/retardation present; thought process is organized, linear, logical and goal directed. Thought content is on discussing treatment options and is pertinent to relevant topics and without any delusional content, paranoid ideations or grandiosity; denies any SI/HI. There is no evidence of perceptual disturbance. Patients insight and judgment appear intact. Diagnostics Vital Signs (24Hr): Vital Signs - 24 hr 05/06/21 11:50 05/06/21 13:50 05/06/21 15:08 Temperature 98.7 F 97.8 F Pulse Rate 95 101 H 95 Respiratory Rate 16 Blood Pressure 120/73 113/71 120/73 Pulse Oximetry 98 05/06/21 15:53 05/07/21 06:10 05/07/21 07:52 Temperature 98 F Pulse Rate 101 H 69 105 H Respiratory Rate 16 Blood Pressure 113/71 121/59 L 114/64 Pulse Oximetry 99 Body Mass Index 27.7 Labs Results: 05/03/21 01:12 05/04/21 08:00 Medications Medications Current Medications Generic Name Dose Route Start Last Admin Trade Name Freq PRN Reason Stop Dose Admin Acetaminophen 650 mg 05/03/21 20:54 05/06/21 11:50 Acetaminophen 325 Mg Tablet PO 650 mg Q6H PRN Administration Headache/Pain Mild Scale (1-3) Al Hydroxide/Mg Hydroxide 30 ml 05/03/21 20:54 Magnesium Hydrox/Alum Hydrox 30 Ml Oral.Susp PO Q6H PRN Heartburn/Nausea Clonidine HCl 0.1 mg 05/05/21 08:01 05/07/21 07:52 Clonidine Hcl 0.1 Mg Tablet PO 0.1 mg TID PRN Administration Opiate Withdrawal Protocol Hydroxyzine HCl 25 mg 05/03/21 20:54 05/06/21 21:28 Hydroxyzine Hcl 25 Mg Tablet PO 25 mg BEDTIME PRN Administration Anxiety Hydroxyzine HCl 25 mg 05/05/21 08:01 05/05/21 08:30 Hydroxyzine Hcl 25 Mg Tablet PO 25 mg Q6H PRN Administration Anxiety Loperamide HCl 2 mg 05/05/21 08:01 Loperamide Hcl 2 Mg Capsule PO Q4H PRN Diarrhea Magnesium Hydroxide 30 ml 05/03/21 20:54 Milk Of Magnesia 30 Ml Oral.Susp PO DAILY PRN Constipation Nicotine Polacrilex 4 mg 05/06/21 12:00 05/07/21 10:11 Nicotine Polacrilex 2 Mg Lozenge BUCCAL 4 mg Q2H PRN Administration Nicotine Cravings Nicotine Polacrilex 4 mg 05/06/21 13:19 05/06/21 21:28 Nicotine Polacrilex 4 Mg Lozenge BUCCAL 4 mg Q2H PRN Administration Nicotine Cravings Trazodone HCl 100 mg 05/03/21 20:54 05/06/21 20:10 Trazodone Hcl 100 Mg Tablet PO 100 mg BEDTIME PRN Administration Insomnia Trimethoprim/Sulfamethoxazole 1 tab 05/05/21 09:00 05/07/21 07:52 Sulfamethox/Trimeth 800/160 1 Tab Tablet PO 05/08/21 08:59 1 tab Q12H CARROLL Administration Allergies Allergies Allergy/AdvReac Type Severity Reaction Status Date / Time No Known Allergies Allergy Verified 11/30/20 15:03 Assessment & Plan Assessment & Plan (1) MDD (major depressive disorder), recurrent episode, severe: Qualifiers: Psychotic features: without psychotic features Qualified Code(s): F33.2 - Major depressive disorder, recurrent severe without psychotic features Status: Acute Code(s): F33.2 - Major depressive disorder, recurrent severe without psychotic features (2) Opioid use disorder: Status: Acute Code(s): F11.99 - Opioid use, unspecified with unspecified opioid-induced disorder (3) Opioid withdrawal: Status: Acute Code(s): F11.23 - Opioid dependence with withdrawal (4) Cocaine dependence with withdrawal: Status: Acute Code(s): F14.23 - Cocaine dependence with withdrawal (5) Chronic post-traumatic stress disorder (PTSD): Status: Acute Code(s): F43.12 - Post-traumatic stress disorder, chronic (6) Bulimia: Status: Acute Code(s): F50.2 - Bulimia nervosa Assessment and Plan: IMPRESSION: Patient is a he 35-year-old female with history of PTSD, bulimia depression and opiate and cocaine abuse who presents for depression and suicidal ideation in the face of ongoing substance abuse and being unmedicated. Patient is currently severely depressed, in both cocaine and opiate withdrawal currently resulting in her being a limited historian; interview was cut short by patient's emotions and follow-up discussion is needed to better assess for history of manic episode and possible bipolar depression. -endorses up to 3 day episodes of hypomania during which time she gets little sleep, has racing thoughts and likely pressured speech; also has behaviors she regrets such as prostitution and stealing. of note patient also has long history of trauma, PTSD and substance abuse which could also produce the symptoms; at this point will leave bipolar disorder as a rule out. However given that she became suicidal on Prozac, found Wellbutrin unhelpful, and has history of hypomania, mood stabilizer is a reasonable choice to which patient agrees. hospital course: Patient completed methadone taper; She remains depressed but mood is better and SI fully resolved. patient reports much anxiety however. She would like gabapentin 100 mg t.i.d. p.r.n. which she says she has done well on in the past and has not abused; marketing underwriter discussed concern about combining this with substance abuse and patient agreed to get on Suboxone which she thinks his huerta given her vulnerability to relapse. Agrees to start ziprasidone as a mood stabilizer, given hypomania; chosen because it is low risk for weight gain - patient is doing better, however remains vulnerable to both relapse and decompensation with resurgence of depression and SI; currently she needs to remain on unit for multiple medication titrations and continued stabilization Plan: Patient on CV Q 15 minutes checks Patient Completed methadone taper patient agrees to starting ziprasidone 20 mg b.i.d. as a mood stabilizer for hypomania Patient agrees to starting Suboxone; will titrate starting tomorrow. patient agrees with starting gabapentin 100 mg t.i.d. p.r.n. for anxiety medication history -patient became suicidal on Prozac -abused Wellbutrin -does not want any medication that causes weight gain given she is bulemic - Suboxone: Patient said it was helpful Chief Technician X Ray discussed risks/side effects of medication regimen, including gabapentin and ziprasidone; patient communicated understanding of benefits, risks and side-effects of medications and wants to continue with regimen. Patient agrees that current doses seem appropriate and denies medication side-effects. Patient agrees to reach out to outpatient provider with any medications concerns. Greater than 50% of the session was spent on counseling and/or coordination of care Reason for contiued inpatient stay Substantial Risk for: rapid decompensation
[2021-05-07] MEDS: Ziprasidone 20 MG CAPSULE PO ×2 (13:11→20:46)
[2021-05-07] MEDS: Gabapentin 100 MG CAPSULE PO (13:11)
[2021-05-07] MEDS: Gabapentin 100 MG CAPSULE 200 MG PO (14:11)
[2021-05-07 15:00] VITALS: BP 101/55; PULSE 91; O2SAT 97
[2021-05-07 16:00] VITALS: PULSE 91
[2021-05-07 16:18] VITALS: BP 94/53; PULSE 91; RESP 18; TEMP 36.3
[2021-05-07 18:35] VITALS: BP 108/60; PULSE 72; RESP 16; TEMP 36.6; O2SAT 98
[2021-05-08] MEDS: traZODone HCL 100 MG TABLET PO ×2 (01:48→20:50)
[2021-05-08] MEDS: Gabapentin 300 MG CAPSULE PO ×3 (01:49→20:50)
[2021-05-08] MEDS: Magnesium Hydrox/Alum Hydrox 30 ML ORAL.SUSP PO ×2 (03:55→13:29)
[2021-05-08 06:00] VITALS: BP 129/78; PULSE 76; RESP 16; TEMP 37.2; O2SAT 98
[2021-05-08] MEDS: hydrOXYzine HCL 25 MG TABLET PO (08:54)
--- NOTE | 2021-05-08 09:38 | HO.PSYCHPN ---
Subjective Subjective Date of Service: 05/08/21 Reason For Visit: Depression Interim History: pt in opioid withdrawal which seems to have started about 1am (last dose of Methadone yesterday). Pt at first worried that it was due to having started on Ziprasidone, however agreed it was due to withdrawal. Patient tearful, sweaty, agitated, nauseas and vomiting agreed to start on Suboxone (having done well on it before). She took Suboxne 2mg which was well tolerated, but when she took another 2mg/0.5mg she entered into precipitated withdrawal which she reported and presented as miserable. Pt agreed to take another Suboxone 8/2mg which cleared up the withdrawal. Patient met with pt later in day and she reported feeling better but still nauseaus. Pt did not want to take Ziprasidone that night, but would consider it for the next day. Logistics Operations Manager encouraged patient to rescind 3 day due on 05/09 given that she has yet to have a stable day to which she would consider. She denies any SI or HI. She shared about her living situation, saying her is sober on Methadone. She'd considered methadone but did not want to have to go daily; however she shared that she liked the accountability of having to go to the clinic. discussed Naltrexone/vivitrol however she finds needles very triggering and says any exposure to them makes her want to use. Mental Status Exam Mental Status Exam Narrative: Pt is alert and oriented; behavior is tearful, agitated; dressed in hospital gown with adequate hygiene; mood is described as awful and affect congruent; eye contact appropriate; Speech is normal rate, volume and prosody and not pressured; some psychomotor agitation present; thought process is organized, linear, logical and goal directed. Thought content is getting rid of withdrawal symptoms; no delusional content, paranoid ideations or grandiosity; denies any SI/HI. There is no evidence of perceptual disturbance. Patients insight and judgment appear intact. Diagnostics Vital Signs (24Hr): Vital Signs - 24 hr 05/07/21 15:00 05/07/21 16:18 05/07/21 18:35 Temperature 97.4 F 98 F Pulse Rate 91 91 72 Respiratory Rate 18 16 Blood Pressure 101/55 L 94/53 L 108/60 Pulse Oximetry 97 98 05/08/21 06:00 Temperature 98.9 F Pulse Rate 76 Respiratory Rate 16 Blood Pressure 129/78 Pulse Oximetry 98 Body Mass Index 27.7 Labs Results: 05/03/21 01:12 05/04/21 08:00 Medications Medications Current Medications Generic Name Dose Route Start Last Admin Trade Name Floydq PRN Reason Stop Dose Admin Acetaminophen 650 mg 05/03/21 20:54 05/06/21 11:50 Acetaminophen 325 Mg Tablet PO 650 mg Q6H PRN Administration Headache/Pain Mild Scale (1-3) Al Hydroxide/Mg Hydroxide 30 ml 05/03/21 20:54 05/08/21 03:55 Magnesium Hydrox/Alum Hydrox 30 Ml Oral.Susp PO 30 ml Q6H PRN Administration Heartburn/Nausea Buprenorphine/Naloxone 1 film 05/08/21 10:30 Buprenorphine/Naloxone 2/0.5mg Film SUBLINGUAL 05/08/21 10:31 ONCE ONE Clonidine HCl 0.1 mg 05/05/21 08:01 05/07/21 07:52 Clonidine Hcl 0.1 Mg Tablet PO 0.1 mg TID PRN Administration Opiate Withdrawal Protocol Gabapentin 300 mg 05/07/21 13:38 05/08/21 01:49 Gabapentin 300 Mg Capsule PO 300 mg TID PRN Administration moderate to more severe anxiety Hydroxyzine HCl 25 mg 05/03/21 20:54 05/06/21 21:28 Hydroxyzine Hcl 25 Mg Tablet PO 25 mg BEDTIME PRN Administration Anxiety Hydroxyzine HCl 25 mg 05/07/21 12:57 05/08/21 08:54 Hydroxyzine Hcl 25 Mg Tablet PO 25 mg Q6H PRN Administration mild Anxiety Loperamide HCl 2 mg 05/05/21 08:01 Loperamide Hcl 2 Mg Capsule PO Q4H PRN Diarrhea Magnesium Hydroxide 30 ml 05/03/21 20:54 Milk Of Magnesia 30 Ml Oral.Susp PO DAILY PRN Constipation Nicotine Polacrilex 4 mg 05/07/21 13:38 Nicotine Polacrilex 2 Mg Gum BUCCAL Q2H PRN Nicotine Cravings Trazodone HCl 100 mg 05/03/21 20:54 05/08/21 01:48 Trazodone Hcl 100 Mg Tablet PO 100 mg BEDTIME PRN Administration Insomnia Ziprasidone 20 mg 05/07/21 21:00 05/07/21 20:46 Ziprasidone 20 Mg Capsule PO 20 mg BID CARROLL Administration Allergies Allergies Allergy/AdvReac Type Severity Reaction Status Date / Time No Known Allergies Allergy Verified 11/30/20 15:03 Assessment & Plan Assessment & Plan (1) MDD (major depressive disorder), recurrent episode, severe: Qualifiers: Psychotic features: without psychotic features Qualified Code(s): F33.2 - Major depressive disorder, recurrent severe without psychotic features Status: Acute Code(s): F33.2 - Major depressive disorder, recurrent severe without psychotic features (2) Opioid use disorder: Status: Acute Code(s): F11.99 - Opioid use, unspecified with unspecified opioid-induced disorder (3) Opioid withdrawal: Status: Acute Code(s): F11.23 - Opioid dependence with withdrawal (4) Cocaine dependence with withdrawal: Status: Acute Code(s): F14.23 - Cocaine dependence with withdrawal (5) Chronic post-traumatic stress disorder (PTSD): Status: Acute Code(s): F43.12 - Post-traumatic stress disorder, chronic (6) Bulimia: Status: Acute Code(s): F50.2 - Bulimia nervosa Assessment and Plan: IMPRESSION: Patient is a he 35-year-old female with history of PTSD, bulimia depression and opiate and cocaine abuse who presents for depression and suicidal ideation in the face of ongoing substance abuse and being unmedicated. Patient is currently severely depressed, in both cocaine and opiate withdrawal currently resulting in her being a limited historian; interview was cut short by patient's emotions and follow-up discussion is needed to better assess for history of manic episode and possible bipolar depression. -endorses up to 3 day episodes of hypomania during which time she gets little sleep, has racing thoughts and likely pressured speech; also has behaviors she regrets such as prostitution and stealing. of note patient also has long history of trauma, PTSD and substance abuse which could also produce the symptoms; at this point will leave bipolar disorder as a rule out. However given that she became suicidal on Prozac, found Wellbutrin unhelpful, and has history of hypomania, mood stabilizer is a reasonable choice to which patient agrees. hospital course: Patient completed methadone taper; She remains depressed but mood is better and SI fully resolved. patient reports much anxiety however. She would like gabapentin 100 mg t.i.d. p.r.n. which she says she has done well on in the past and has not abused; clinical writer discussed concern about combining this with substance abuse and patient agreed to get on Suboxone which she thinks his huerta given her vulnerability to relapse. Agrees to start ziprasidone as a mood stabilizer, given hypomania; chosen because it is low risk for weight gain pt in [facility] following Methadone taper; started on Subxone which was titrated until withdrawal symptoms resolved; held off on Ziprasidone but will consider taking it tomorrow. Logistics Operations Manager encouraged patient to rescind 3 day due on 05/09 given that she has yet to have a stable day; she is still being titrated on Suboxone and will hopefully retry Ziprasidone. Pt will consider staying additional day. Plan: 3 day notice due 05/09 Q 15 minutes checks Suboxone 8/2mg at bedtime one time dose Suboxone 16/4mg daily starting on 05/09 Patient Completed methadone taper patient agrees to starting ziprasidone 20 mg b.i.d. as a mood stabilizer for hypomania increased gabapentin to 300 mg t.i.d. p.r.n. for anxiety; as patient agrees to get on suboxne as well, clinical writer will order this med since it helps with anxiety which lowers triggers to use and since on suboxone she's protected from overdose medication history -patient became suicidal on Prozac -abused Wellbutrin -does not want any medication that causes weight gain given she is bulemic - Suboxone: Patient said it was helpful Logistics Operations Manager discussed risks/side effects of medication regimen, including gabapentin and ziprasidone; patient communicated understanding of benefits, risks and side-effects of medications and wants to continue with regimen. Patient agrees that current doses seem appropriate and denies medication side-effects. Patient agrees to reach out to outpatient provider with any medications concerns. Greater than 50% of the session was spent on counseling and/or coordination of care Reason for contiued inpatient stay Substantial Risk for: rapid decompensation
[2021-05-08] MEDS: Buprenorphine/Naloxone 2/0.5mg FILM 1 FILM SUBLINGUAL ×2 (09:56→10:59)
[2021-05-08] MEDS: Acetaminophen 325 MG TABLET 650 MG PO ×2 (13:29→19:38)
[2021-05-08] MEDS: Buprenorphine/Naloxone 8/2 mg FILM 1 FILM SUBLINGUAL ×2 (14:07→19:08)
[2021-05-08 18:00] VITALS: BP 118/68; PULSE 64; RESP 18; TEMP 36.5; O2SAT 99
[2021-05-08] MEDS: Nicotine Polacrilex 2 MG GUM 4 MG BUCCAL (20:50)
[2021-05-09] MEDS: Buprenorphine/Naloxone 8/2 mg FILM 2 FILM SUBLINGUAL (08:22)
[2021-05-09] MEDS: Ziprasidone 20 MG CAPSULE PO (08:22)
[2021-05-09] MEDS: Gabapentin 300 MG CAPSULE PO (09:06)
--- NOTE | 2021-05-09 09:51 | P.PNPSI_ITS ---
Subjective Subjective Date of Service: 05/09/21 Reason For Visit: Depression Interim History: patient reports feeling much better today. She says Suboxone has fully resolved all withdrawal; she feels that 16/4 mg is the right dose. Patient says she also took ziprasidone this morning and is tolerating it well and would like to continue with it. Patient discussed whether not to discharge today. She felt that she was safe and stable and ready to go. She denies any SI or HI and is optimistic about staying stable and sober. Mental Status Exam Mental Status Exam Narrative: Pt is alert and oriented; behavior is cooperative, friendly and calm; patient is not in distress; dressed in hospital gown with adequate hygiene; mood is described as good and affect congruent; eye contact appropriate; Speech is normal rate, volume and prosody and not pressured; no psychomotor agitation/retardation present; thought process is organized, linear, logical and goal directed. Thought content is on discussing treatment options and is pertinent to relevant topics and without any delusional content, paranoid ideations or grandiosity; denies any SI/HI. There is no evidence of perceptual disturbance. Patients insight and judgment appear intact. Diagnostics Vital Signs (24Hr): Vital Signs - 24 hr 05/08/21 18:00 Temperature 97.7 F Pulse Rate 64 Respiratory Rate 18 Blood Pressure 118/68 Pulse Oximetry 99 Body Mass Index 27.7 Labs Results: 05/03/21 01:12 05/04/21 08:00 Medications Medications Current Medications Generic Name Dose Route Start Last Admin Trade Name Freq PRN Reason Stop Dose Admin Acetaminophen 650 mg 05/03/21 20:54 05/08/21 19:38 Acetaminophen 325 Mg Tablet PO 650 mg Q6H PRN Administration Headache/Pain Mild Scale (1-3) Al Hydroxide/Mg Hydroxide 30 ml 05/03/21 20:54 05/08/21 13:29 Magnesium Hydrox/Alum Hydrox 30 Ml Oral.Susp PO 30 ml Q6H PRN Administration Heartburn/Nausea Buprenorphine/Naloxone 2 film 05/09/21 07:00 05/09/21 08:22 Buprenorphine/Naloxone 8/2 Mg Film SUBLINGUAL 2 film DAILY CARROLL Administration Clonidine HCl 0.1 mg 05/05/21 08:01 05/07/21 07:52 Clonidine Hcl 0.1 Mg Tablet PO 0.1 mg TID PRN Administration Opiate Withdrawal Protocol Gabapentin 300 mg 05/07/21 13:38 05/09/21 09:06 Gabapentin 300 Mg Capsule PO 300 mg TID PRN Administration moderate to more severe anxiety Hydroxyzine HCl 25 mg 05/03/21 20:54 05/06/21 21:28 Hydroxyzine Hcl 25 Mg Tablet PO 25 mg BEDTIME PRN Administration Anxiety Hydroxyzine HCl 25 mg 05/07/21 12:57 05/08/21 08:54 Hydroxyzine Hcl 25 Mg Tablet PO 25 mg Q6H PRN Administration mild Anxiety Loperamide HCl 2 mg 05/05/21 08:01 Loperamide Hcl 2 Mg Capsule PO Q4H PRN Diarrhea Magnesium Hydroxide 30 ml 05/03/21 20:54 Milk Of Magnesia 30 Ml Oral.Susp PO DAILY PRN Constipation Naloxone HCl 4 mg 05/09/21 10:01 Naloxone Hcl Nasal Take Home 4 Mg [place] NOSTRILALT 05/09/21 10:02 ONCE ONE Nicotine Polacrilex 4 mg 05/07/21 13:38 05/08/21 20:50 Nicotine Polacrilex 2 Mg Gum BUCCAL 4 mg Q2H PRN Administration Nicotine Cravings Trazodone HCl 100 mg 05/03/21 20:54 05/08/21 20:50 Trazodone Hcl 100 Mg Tablet PO 100 mg BEDTIME PRN Administration Insomnia Ziprasidone 20 mg 05/07/21 21:00 05/09/21 08:22 Ziprasidone 20 Mg Capsule PO 20 mg BID CARROLL Administration Allergies Allergies Allergy/AdvReac Type Severity Reaction Status Date / Time No Known Allergies Allergy Verified 11/30/20 15:03 Assessment & Plan Assessment & Plan (1) MDD (major depressive disorder), recurrent episode, severe: Qualifiers: Psychotic features: without psychotic features Qualified Code(s): F33.2 - Major depressive disorder, recurrent severe without psychotic features Status: Acute Code(s): F33.2 - Major depressive disorder, recurrent severe without psychotic features (2) Opioid use disorder: Status: Acute Code(s): F11.99 - Opioid use, unspecified with unspecified opioid-induced disorder (3) Opioid withdrawal: Status: Acute Code(s): F11.23 - Opioid dependence with withdrawal (4) Cocaine dependence with withdrawal: Status: Acute Code(s): F14.23 - Cocaine dependence with withdrawal (5) Chronic post-traumatic stress disorder (PTSD): Status: Acute Code(s): F43.12 - Post-traumatic stress disorder, chronic (6) Bulimia: Status: Acute Code(s): F50.2 - Bulimia nervosa Assessment and Plan: IMPRESSION: Patient is a he 35-year-old female with history of PTSD, bulimia depression and opiate and cocaine abuse who presents for depression and suicidal ideation in the face of ongoing substance abuse and being unmedicated. Patient is currently severely depressed, in both cocaine and opiate withdrawal currently resulting in her being a limited historian; interview was cut short by patient's emotions and follow-up discussion is needed to better assess for history of manic episode and possible bipolar depression. -endorses up to 3 day episodes of hypomania during which time she gets little sleep, has racing thoughts and likely pressured speech; also has behaviors she regrets such as prostitution and stealing. of note patient also has long history of trauma, PTSD and substance abuse which could also produce the symptoms; at this point will leave bipolar disorder as a rule out. However given that she became suicidal on Prozac, found Wellbutrin unhelpful, and has history of hypomania, mood stabilizer is a reasonable choice to which patient agrees. hospital course: Patient completed methadone taper; She remains depressed but mood is better and SI fully resolved. patient reports much anxiety however. She would like gabapentin 100 mg t.i.d. p.r.n. which she says she has done well on in the past and has not abused; underwriter solicitation director discussed concern about combining this with substance abuse and patient agreed to get on Suboxone which she thinks his huerta given her vulnerability to relapse. Agrees to start ziprasidone as a mood stabilizer, given hypomania; chosen because it is low risk for weight gain. On 05/[address] [facility] following Methadone taper; started on Subxone which was titrated u ntil withdrawal symptoms resolved; held off on Ziprasidone but will consider taking it tomorrow. Conventional Mortgage Underwriter encouraged patient to rescind 3 day due on 05/09 given that she has yet to have a stable day; she is still being titrated on Suboxone and will hopefully retry Ziprasidone. Pt will consider staying additional day. all withdrawal resolved; patient feels good, no depression no SI or HI, feeling stable and optimistic about staying sober. She took ziprasidone, denies any side effect and wants to continue with it. She feels Suboxone dose is the right amount. Patient would like to discharge today. Her 3 days up. Patient is not in imminent risk of harm to self or others and her request for discharge honored. regarding patient's diagnosis, she meets criteria for bipolar type 2 except for possible duration which she said was about 3 days worth of hypomania. Given that her history memory is a little vague and 3 days could be 4 days, will diagnosis as bipolar type 2 but leave it as provisional; there also remains a possibility that this type of behavior could simply be fueled by combination of PTSD and substance abuse. But this will need to be further assessed over a longer period of time with her outpatient provider. patient has a history of SI when depressed; and ss she has become suicidal on Prozac, and Wellbutrin was on helpful, a mood stabilizing medication is appropriate at this time. ziprasidone chosen since lower risk of weight gain. Patient has a very trigge red response to needles and did not want blood draws if she could avoid it; as she has just started on ziprasidone underwriter solicitation director will defer hemoglobin A1c, lipid monitoring to outpatient provider Plan: 3 day notice due 05/09 Q 15 minutes checks Suboxone 16/4mg daily starting on 05/09 Patient Completed methadone taper patient agrees to starting ziprasidone 20 mg b.i.d. as a mood stabilizer for hypomania increased gabapentin to 300 mg t.i.d. p.r.n. for anxiety; as patient agrees to get on suboxne as well, underwriter solicitation director will order this med since it helps with anxiety which lowers triggers to use and since on suboxone she's protected from overdose medication history -patient became suicidal on Prozac -abused Wellbutrin -does not want any medication that causes weight gain given she is bulemic - Suboxone: Patient said it was helpful Conventional Mortgage Underwriter discussed risks/side effects of medication regimen, including gabapentin and ziprasidone; patient communicated understanding of benefits, risks and side-effects of medications and wants to continue with regimen. Patient agrees that current doses seem appropriate and denies medication side-effects. Patient agrees to reach out to outpatient provider with any medications concerns. Greater than 50% of the session was spent on counseling and/or coordination of care Reason for contiued inpatient stay Substantial Risk for: stable for discharge
--- NOTE | 2021-05-09 12:02 | PM.PSYDC ---
DS: Providers Provider Date of Service: 05/09/21 Date of admission: 05/03/21 20:54 Date of discharge: 05/09/21 Primary care physician: Fernando Tee MD Admitting clinician: Kamar Vyas Attending physician on discharge: Kamar Vyas DS: Diagnosis Discharge Diagnosis (1) MDD (major depressive disorder), recurrent episode, severe: Status: Inactive Problem details: rule bipolar depression (2) Opioid use disorder: Status: Chronic Problem details: severe (3) Opioid withdrawal: Status: Resolved (4) Cocaine dependence with withdrawal: Status: Resolved (5) Chronic post-traumatic stress disorder (PTSD): Status: Chronic (6) Bulimia: Status: Chronic (7) Bipolar 2 disorder, major depressive episode: Status: Suspected Problem details: PROVISIONAL DX OF BIPOLAR (further r/o if explained by ptsd/substance) DS: Medications Discharge Medications Home Medications: Previous Rx's Medication Instructions Recorded buprenorphine-naloxone [Suboxone] 2 film SUBLINGUAL DAILY #0 ea 05/09/21 gabapentin 300 mg PO TID PRN 15 Days #45 cap 05/09/21 trazodone 100 mg PO BEDTIME PRN 30 Days #10 05/09/21 tab ziprasidone HCl 20 mg PO BID 30 Days #60 cap 05/09/21 Discharge Plan Discharge Patient Disposition: Home, Self-Care Discharge Diagnosis: Provisional dx of Bipolar disorder Type II Referrals: Therapist: Leyda Alcala ([facility]) [Other] - 05/16/21 11:00 am (Telehealth ) Psych Prescriber: Sagrario Cline ([facility]) [Other] - 06/07/21 3:20 pm (Telehealth ) Psych Prescriber: Sagrario Cline ([facility]) [Other] - 07/03/21 11:20 am (Telehealth ) Suboxone: [facility] [Other] - 05/08/21 1:00 pm Fernando Tee MD [Primary Care Provider] - 1 Week Discharge Medications: New buprenorphine-naloxone [Suboxone] 8-2 mg Film 2 film sublingual DAILY Qty: 0 RF: 0 ziprasidone HCl 20 mg Capsule 20 mg PO BID 30 Days Qty: 60 RF: 0 Changed trazodone 100 mg tablet 100 mg PO BEDTIME PRN (Reason: insomnia) 30 Days Qty: 10 RF: 0 gabapentin 300 mg capsule 300 mg PO TID PRN (Reason: anxiety) 15 Days Qty: 45 RF: 1 Discontinued clonidine HCl 0.1 mg tablet 0.1 mg PO TID Qty: 90 RF: 12 oxcarbazepine 300 mg tablet 300 mg PO BID Qty: 180 RF: 8 nicotine (polacrilex) [Nicorette] 4 mg gum 4 mg buccal Q1H Qty: 100 RF: 8 buprenorphine-naloxone 4-1 mg film 0 mg sublingual RF: 0 nicotine 14 mg/24 hr patch 24 hour 1 patch topical DAILY RF: 0 bupropion HCl 150 mg tablet extended release 24 hr 150 mg PO QAM RF: 0 Discharge Orders: Discharge Order (Routine); Ordered 05/09/21 Ordered By: Kamar Vyas Diet: regular diet Activity on Discharge: As tolerated Stand Alone Forms: Patient Portal Discharge page Activity Restrictions/Additional Instructions: Please follow-up with your primary care physician tomorrow. If you have any worsening or new symptoms, please return to the emergency room or call 911 Care Plan Goals: Maintain mood and safe behaviors Take medications as prescribed Continue to pursue sobriety Practice coping skills Continue with outpatient providers and reach out to them as needed Health Concerns: Mood instability and behaviors Plan of Treatment: Follow up with your PCP and psychiatric provider regarding above concerns Take medications as prescribed Assessment: Risk assessment at time of discharge: Patient has been observed closely by nursing and unit staff throughout admission; patient has not engaged in any behaviors that suggest dangerousness to self or others and has demonstrated appropriate behaviors and impulse control. Patient was interviewed prior to discharge and found to be fully oriented and without any SI or HI. Patient has insight and demonstrates good judgment in terms of wanting to pursue treatment. Patient is not in imminent risk of harm to self or others and has a safety plan that includes presenting to the closest ER or calling 911 if feeling unsafe. Patient Instructions: Cellulitis (ED) Mental Status Exam Mental Status Exam Narrative: Pt is alert and oriented; behavior is cooperative, friendly and calm; patient is not in distress; dressed in hospital gown with adequate hygiene; mood is described as good and affect congruent; eye contact appropriate; Speech is normal rate, volume and prosody and not pressured; no psychomotor agitation/retardation present; thought process is organized, linear, logical and goal directed. Thought content is on discussing treatment options and is pertinent to relevant topics and without any delusional content, paranoid ideations or grandiosity; denies any SI/HI. There is no evidence of perceptual disturbance. Patients insight and judgment appear intact. Data Data Completed and Pending Completed studies during hospitalization [Text1]: 05/03/21 05/03/21 05/03/21 00:31 00:31 00:31 WBC RBC Hgb Hct MCV MCH MCHC RDW Plt Count MPV Immature Gran % (Auto) Neut % (Auto) Lymph % (Auto) [place] % (Auto) Eos % (Auto) Baso % (Auto) Lymph # (Auto) [place] # (Auto) Eos # (Auto) Baso # (Auto) Abs Immat Gran (auto) Absolute Neuts (auto) Absolute Nucleated RBC Nucleated RBC % (auto) Sodium Potassium Chloride Carbon Dioxide Anion Gap BUN Creatinine Estim Creat Clear Calc Estimated GFR Random Glucose Fasting Glucose Lactic Acid Calcium Magnesium Total Bilirubin Direct Bilirubin AST ALT Alkaline Phosphatase Total Protein Albumin Urine Color YELLOW Urine Appearance HAZY Urine pH 6.0 Ur Specific [place] >= 1.030 H Urine Protein TRACE Urine Glucose (UA) NEG Urine Ketones 5 Urine Blood NEG Urine Nitrite NEG Ur Leukocyte Esterase NEG Urine RBC 0 Urine WBC 0-2 Ur Squamous Epith Cells 3+ Amorphous Sediment 4+ Urine Bacteria NONE Urine Test NEGATIVE Urine Opiates Screen POSITIVE H Ur Barbiturates Screen Not Detected Ur Phencyclidine Scrn Not Detected Ur Amphetamines Screen Not Detected U Benzodiazepines Scrn Not Detected Urine Cocaine Screen POSITIVE H U Marijuana (THC) Screen POSITIVE H Ethyl Alcohol COVID-19 (JOAO) COVID-19 Clin Com 05/03/21 05/03/21 05/03/21 00:41 01:12 01:12 WBC 7.8 RBC 4.00 L Hgb 11.0 L Hct 34.7 L MCV 86.8 MCH 27.5 MCHC 31.7 RDW 14.0 Plt Count 251 MPV 9.6 Immature Gran % (Auto) 0.4 Neut % (Auto) 69.1 Lymph % (Auto) 23.3 [place] % (Auto) 6.0 Eos % (Auto) 0.9 Baso % (Auto) 0.3 Lymph # (Auto) 1.8 [place] # (Auto) 0.5 Eos # (Auto) 0.1 Baso # (Auto) 0.0 Abs Immat Gran (auto) 0.03 Absolute Neuts (auto) 5.4 Absolute Nucleated RBC 0.000 Nucleated RBC % (auto) 0.0 Sodium 139 Potassium 3.7 Chloride 103 Carbon Dioxide 27 Anion Gap 13 BUN 12 Creatinine 0.75 Estim Creat Clear Calc 88.5 Estimated GFR > 60 Random Glucose 118 H Fasting Glucose Lactic Acid Calcium 9.1 Magnesium 2.2 Total Bilirubin Direct Bilirubin AST ALT Alkaline Phosphatase Total Protein Albumin Urine Color Urine Appearance Urine pH Ur Specific [place] Urine Protein Urine Glucose (UA) Urine Ketones Urine Blood Urine Nitrite Ur Leukocyte Esterase Urine RBC Urine WBC Ur Squamous Epith Cells Amorphous Sediment Urine Bacteria Urine Test Urine Opiates Screen Ur Barbiturates Screen Ur Phencyclidine Scrn Ur Amphetamines Screen U Benzodiazepines Scrn Urine Cocaine Screen U Marijuana (THC) Screen Ethyl Alcohol COVID-19 (JOAO) Negative COVID-19 [employer] Com See Note 05/03/21 05/03/21 05/03/21 01:12 01:12 01:12 WBC RBC Hgb Hct MCV MCH MCHC RDW Plt Count MPV Immature Gran % (Auto) Neut % (Auto) Lymph % (Auto) [place] % (Auto) Eos % (Auto) Baso % (Auto) Lymph # (Auto) [place] # (Auto) Eos # (Auto) Baso # (Auto) Abs Immat Gran (auto) Absolute Neuts (auto) Absolute Nucleated RBC Nucleated RBC % (auto) Sodium Potassium Chloride Carbon Dioxide Anion Gap BUN Creatinine Estim Creat Clear Calc Estimated GFR Random Glucose Fasting Glucose Lactic Acid 0.6 Calcium Magnesium Total Bilirubin 0.5 Direct Bilirubin 0.2 AST 18 ALT 11 Alkaline Phosphatase 78 Total Protein 6.7 Albumin 4.1 Urine Color Urine Appearance Urine pH Ur Specific [place] Urine Protein Urine Glucose (UA) Urine Ketones Urine Blood Urine Nitrite Ur Leukocyte Esterase Urine RBC Urine WBC Ur Squamous Epith Cells Amorphous Sediment Urine Bacteria Urine Test Urine Opiates Screen Ur Barbiturates Screen Ur Phencyclidine Scrn Ur Amphetamines Screen U Benzodiazepines Scrn Urine Cocaine Screen U Marijuana (THC) Screen Ethyl Alcohol < 10 COVID-19 (JOAO) COVID-19 [employer] 05/04/21 08:00 WBC RBC Hgb Hct MCV MCH MCHC RDW Plt Count MPV Immature Gran % (Auto) Neut % (Auto) Lymph % (Auto) [place] % (Auto) Eos % (Auto) Baso % (Auto) Lymph # (Auto) [place] # (Auto) Eos # (Auto) Baso # (Auto) Abs Immat Gran (auto) Absolute Neuts (auto) Absolute Nucleated RBC Nucleated RBC % (auto) Sodium 141 Potassium 4.4 Chloride 109 H Carbon Dioxide 25 Anion Gap 11 L BUN 13 Creatinine 0.74 Estim Creat Clear Calc 89.7 Estimated GFR > 60 Random Glucose Fasting Glucose 93 Lactic Acid Calcium 8.8 Magnesium Total Bilirubin 0.3 Direct Bilirubin 0.2 AST 14 ALT 8 Alkaline Phosphatase 67 Total Protein 6.0 L Albumin 3.6 Urine Color Urine Appearance Urine pH Ur Specific [place] Urine Protein Urine Glucose (UA) Urine Ketones Urine Blood Urine Nitrite Ur Leukocyte Esterase Urine RBC Urine WBC Ur Squamous Epith Cells Amorphous Sediment Urine Bacteria Urine Test Urine Opiates Screen Ur Barbiturates Screen Ur Phencyclidine Scrn Ur Amphetamines Screen U Benzodiazepines Scrn Urine Cocaine Screen U Marijuana (THC) Screen Ethyl Alcohol COVID-19 (JOAO) COVID-19 Clin Com 05/03/21 01:12 Blood - Venous Blood Culture - Final No growth after 5 days. 05/03/21 01:12 Blood - Venous Blood Culture - Final No growth after 5 days. DS: Summary Hospital Course Hospital Course: Patient is a he 35-year-old female with history of PTSD, bulimia, depression and opiate and cocaine dependence who presents for depression and suicidal ideation in the face of ongoing substance abuse and being unmedicated. patient admitted on CV. on admission, patient was depressed, in both cocaine and opiate withdrawal, but denied SI which had resolved. opiate withdrawal was being treated with methadone. further history was taken which patient endorsed hx of having period hypomanic episodes, lasting about 3 days during which time she needs little sleep, has racing thoughts, feeling that her mind is going faster that what she's able to say and she thinks she has pressured speech; also during this time has behaviors she regrets such as prostitution and stealing. As these behaviors could possibly be explained by combination of PTSD and substance abuse marine underwriter decided to make this a provisional diagnosis; given that patient got suicidal in the past on Prozac and found Wellbutrin unhelpful, she agreed to starting the mood stabilizer ziprasidone, chosen since it has low risk for weight gain. Regarding bulimia, patient says she has a history of purging and using laxatives but not recently. during admission, patient's methadone taper completed, her mood was better and SI fully resolved. She had continued anxiety and asked to get back on gabapentin which she found helpful in the past, to which marine underwriter agreed since she also was willing to get on maintenance medication for opioid abuse. Patient continued to deny any suicidal or homicidal ideation during admission and demonstrated appropriate behaviors and impulse control on the unit. Once off methadone, patient went into withdrawal which resolved once Suboxone was titrated. on Suboxone, patient reported she felt stable, mood was good and she wanted discharge, feeling hopeful about staying sober; depression and SI remained resolved and she was without any manic symptoms. Patient had placed a 3 day notice due 05/09 and felt that She was ready to go home, returning to her family with whom she lives. Patient tolerated ziprasidone, was on maintenance dose of Suboxone with clinic appointment for this afternoon. She was not in imminent risk of harm to self or others and her request for discharge honored. Parachute Marker discussed risks/side effects of medication regimen, including but not limited to, gabapentin and ziprasidone; patient communicated understanding of benefits, risks and side-effects of medications and wants to continue with regimen. Patient agrees that current doses seem appropriate and denies medication side-effects. Patient agrees to reach out to outpatient provider with any medications concerns. Time spent discussing smoking cessation with patient: 3 to 10 minutes Status at Discharge Functional status at discharge: independent ambulation Overall status at discharge: patient is back to baseline Time Spent with Patient Time attestation: Total time spent providing and/or coordinating discharge services: Time spent: Greater than 30 minutes
== END 2021-05-09 13:00 | disposition home or self-care (01) | DRG 753 ==
LOC: HO.ED 05-03 21:01 → HO.PM5 05-03 21:37
PROVIDERS: Emergency Medicine; Admitting Provider Psychiatry & Neurology Psychiatry; Emergency Provider Emergency Medicine Emergency Medical Services; PCP Internal Medicine; Visit Provider Psychiatry & Neurology Psychiatry
DX: F31.81 Bipolar II disorder (principal); F50.2 Bulimia nervosa; I95.9 Hypotension, unspecified; R45.851 Suicidal ideations; F11.23 Opioid dependence with withdrawal; F17.210 Nicotine dependence, cigarettes, uncomplicated; F43.12 Post-traumatic stress disorder, chronic; Z68.27 Body mass index [BMI] 27.0-27.9, adult; F14.10 Cocaine abuse, uncomplicated; Z20.822 Contact with and (suspected) exposure to COVID-19; Z59.0 Homelessness; Z71.6 Tobacco abuse counseling; Z79.899 Other long term (current) drug therapy
CPT/HCPCS: 36415; 80048; 80053; 80076; 80307; 81001; 81025; 82077; 83605; 83735; 85025; 87040; 87635; 99285

== ENCOUNTER → 2021-05-09 13:03 | Outpatient (BNVA) | payer OTHER, SELFPAY | PROVIDERS: PCP Internal Medicine; Visit Provider Internal Medicine | DX: F11.99 Opioid use, unspecified with unspecified opioid-induced disorder (principal) | CPT/HCPCS: 80305 ==

== ENCOUNTER 2021-05-24 21:59 | Emergency (ER) | payer OTHER, SELFPAY ==
[2021-05-24 22:32] VITALS: PULSE 105; RESP 20; TEMP 36.6; O2SAT 97; BMI 28.3
[2021-05-25] VITALS: PULSE 103; RESP 20; TEMP 37.1; O2SAT 95
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
[2021-05-25 00:51] LABS: Basophils Percent Auto 0.3 % (0-2); Eosinophils Absolute Auto 0.1 X10*3/uL (0.0-0.4); Eosinophils Percent Auto 0.7 % (0-4); Hematocrit 37.2 % (37-47); Hemoglobin 11.8 g/dl (12.0-16.0); Imm Gran Abs Auto 0.02 X10*3/uL (0.00-0.03); Imm Gran Pct Auto 0.2 % (0.0-0.4); Lymphocytes Absolute Auto 1.1 X10*3/uL (1.2-4.9); Lymphocytes Percent Auto 12.2 % (20-40); MANUAL DIFF FLAG SCAN; Mean Corpuscular HGB Conc 31.7 g/dl (31.0-35.0); Mean Corpuscular Hemoglobin 27.1 pg (27.0-33.0); Mean Corpuscular Volume 85.5 fL (80-98); Mean Platelet Volume 10.9 fL (9.4-12.3); Monocytes Absolute Auto 0.3 X10*3/uL (0.1-1.2); Monocytes Percent Auto 3.5 % (2-11); Neutrophils Absolute Auto 7.4 X10*3/uL (2.0-8.3); Neutrophils Percent Auto 83.1 % (45-73); PLT CLUMP 1; Red Blood Count 4.35 X10*6/uL (4.20-5.50); Red Cell Distribution Width 13.7 % (11.0-16.0); SCAN SMEAR FLAG 1
[2021-05-25 00:53] LABS: White Blood Count 8.9 X10*3/uL (4.8-10.8)
[2021-05-25 01:03] LABS: Lactic Acid 0.8 mmol/L (0.5-2.0)
[2021-05-25 01:10] LABS: SLIDE REVIEW VERIFIED
[2021-05-25 01:20] LABS: Anion Gap 15 (12-20); Blood Urea Nitrogen 9 mg/dL (9-16); Calcium 8.9 mg/dL (8.4-10.2); Carbon Dioxide 24 mmol/L (22-29); Chloride 106 mmol/L (96-108); Estimated Glomerular Filt Rate > 60; Glucose Random 101 mg/dL (60-115); Potassium 3.8 mmol/L (3.3-5.1); Sodium 141 mmol/L (135-145)
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
[2021-05-25] MEDS: Acetaminophen 325 MG TABLET 975 MG PO (02:16)
[2021-05-25] MEDS: Ibuprofen 400 MG TABLET PO (02:17)
[2021-05-25 07:51] VITALS: BP 95/54; PULSE 71; RESP 15; TEMP 37.1; O2SAT 95
[2021-05-25 08:09] VITALS: BP 96/61; PULSE 76; RESP 15; O2SAT 96
[2021-05-25] MEDS: cephALEXin 500 MG CAPSULE PO (08:11)
--- NOTE | 2021-05-25 08:51 | MHC.RECOVSUP ---
Recovery Support note: Patient is a 35 year old Croatian speaking female who presented to [facility] due to reasons related to her substance use. Patient was seen by CARE Team and has remained in the ED to follow up with Recovery Support Team. This advertising writer met with patient this morning to discuss treatment options. Patient was asleep but awoke after this advertising writer repeated her name. Patient continues to express interest in going to detox. This advertising writer referred patient to [facility] and they are currently holding a bed for this patient. This advertising writer will arrange transportation for patient to [facility]. Patient is agreeable and reports no questions at this time. Discussed case with patient's ED provider.
== END 2021-05-25 09:24 | disposition home or self-care (01) ==
PROVIDERS: Emergency Provider Student in an Organized Health Care Education/Training Program; PCP Internal Medicine
DX: L02.413 Cutaneous abscess of right upper limb (principal); F19.20 Other psychoactive substance dependence, uncomplicated; F11.99 Opioid use, unspecified with unspecified opioid-induced disorder; F43.12 Post-traumatic stress disorder, chronic; F31.81 Bipolar II disorder; F50.2 Bulimia nervosa; B19.20 Unspecified viral hepatitis C without hepatic coma; F17.210 Nicotine dependence, cigarettes, uncomplicated; Z59.0 Homelessness
CPT/HCPCS: 10060; 36415; 80048; 83605; 85025; 87040; 99284; 99285

== ENCOUNTER 2021-06-19 10:19 | Emergency (ER) | payer OTHER, SELFPAY ==
[2021-06-19 10:34] VITALS: BP 120/80; BP 120/86; PULSE 88; RESP 17; TEMP 36.6; O2SAT 98; O2SAT 99; BMI 25.4
--- NOTE | 2021-06-19 11:18 | ED.OVERDOSE ---
HPI - Overdose General Chief Complaint: Overdose Stated Complaint: overdose Time Seen by Provider: 06/19/21 11:15 History of Present Illness HPI Narrative: Patient 35 years old history of using heroin. Patient found on the street apnea. Given Narcan woke up. Patient admits to using heroin. No suicidal homicidal ideation. Currently wants to stop. Patient from the street. Related Data Previous Rx's Medication Instructions Recorded buprenorphine 8 mg-naloxone 2 mg 2 film SUBLINGUAL DAILY 7 Days #14 05/09/21 sublingual film (Suboxone) ea gabapentin 300 mg capsule 300 mg PO TID PRN 15 Days #45 cap 05/09/21 trazodone 100 mg tablet 100 mg PO BEDTIME PRN 30 Days #10 05/09/21 tab ziprasidone HCl 20 mg capsule 20 mg PO BID 30 Days #60 cap 05/09/21 cephalexin 500 mg capsule 500 mg PO TID 7 Days #21 cap 05/25/21 doxycycline hyclate 100 mg tablet 100 mg PO BID 7 Days #14 tab 05/25/21 Allergies Allergy/AdvReac Type Severity Reaction Status Date / Time No Known Allergies Allergy Verified 11/30/20 15:03 Review of Systems Review of Systems: No fever no chills no chest pain or shortness of breath no diaphoresis. No focal weakness. Yes all other systems are reviewed and are negative PMFSH Past Medical History Attestation statement: The following information was validated with the patient. Source: unable to obtain Medical History Bipolar 2 disorder, major depressive episode Bulimia Chronic post-traumatic stress disorder (PTSD) Hepatitis C MDD (major depressive disorder), recurrent episode, severe Opioid use disorder Substance abuse Surgical History No significant past surgical history Family History Family History Father Liver cancer Mother No problems noted. Family/Other Cancer Depression Social History Social History Household Members: None Housing: Homeless Do you presently have visiting nurse or other home services: No Alcohol intake: never Patient Tobacco Use Status: Current everyday Tobacco user Tobacco use type: Cigarette Cigarette Packs Per Day: 0.25 Cigarettes Per Day: 5.0 Years Smoked: 17 e-Cigarette/Vaping Use: Never Used Second Hand Smoke Exposure: No Use of substances other than those prescribed or required for medical reasons: Yes Substance Use Type: Heroin Substance Use Frequency: Daily Advance Directives: No Advance Directives Information Provided: No Patient : No service: No Sexual orientation: Don't Know Physical Exam Vital Signs: Vital Signs: Last Vital Signs Temp 98.5 F 06/19/21 13:08 Pulse 82 06/19/21 13:08 Resp 16 06/19/21 13:08 BP 98/52 L 06/19/21 13:08 Pulse Ox 95 06/19/21 13:08 Body Mass Index 25.4 Appearance: Alert. Oriented X3. No acute distress. Eyes: Pupils equal, round and reactive to light. ENT: Pharynx normal. Neck: Normal inspection. Neck supple. No lymph nodes noted. No crepitus CVS: Normal heart rate and rhythm. Pulses normal. Normal S1 and S2 Respiratory: No respiratory distress. Breath sounds normal. No Wheezing. No rales Abdomen: Soft and nontender. No rigidity. No distention. good BS x4 Skin: Skin warm and dry. Normal skin color. Normal skin turgor. Extremities: No lower extremity edema. Neurovascular intact to all extremities. No Lacerations. No Rash Neuro: Oriented X 3. No motor deficit. No sensory deficit. Moving all extermities. No slurred speech MDM - Overdose MDM Narrative Medical decision making narrative: No suicidal homicidal ideations. Will monitor carefully. Will have patient get substance abuse counseling. In stable condition. Discharge Plan Discharge Clinical Impression: Opioid use disorder Patient Disposition: Home, Self-Care Instructions: Narcotic Use Disorder (ED) Additional Instructions: Please go to detox. Prescriptions: No Action cephalexin 500 mg Capsule 500 mg PO TID 7 Days Qty: 21 RF: 0 doxycycline hyclate 100 mg Tablet 100 mg PO BID 7 Days Qty: 14 RF: 0 ziprasidone HCl 20 mg Capsule 20 mg PO BID 30 Days Qty: 60 RF: 0 trazodone 100 mg tablet 100 mg PO BEDTIME PRN (Reason: insomnia) 30 Days Qty: 10 RF: 0 gabapentin 300 mg capsule 300 mg PO TID PRN (Reason: anxiety) 15 Days Qty: 45 RF: 1 buprenorphine-naloxone [Suboxone] 8-2 mg film 2 film sublingual DAILY 7 Days Qty: 14 RF: 0 Referrals: Fernando Tee MD [Primary Care Provider] - 2 days
--- NOTE | 2021-06-19 12:11 | PC.NURSE ---
recovery team in speaking with patient
--- NOTE | 2021-06-19 12:35 | MHC.RECOVRN ---
T/w met with pt in ED14 after request from provider. Pt reports leaving a program 4 days ago and using IV heroin, 1 bag, and cocaine daily since discharge. Pt reports today she used 1 bag and knew it was too much. Pt feels embarrassed regarding overdose, pt tearful. Pt reports [facility] a bed at a [facility] in [facility] today, however, is unsure if she would like to go due to losing housing in [place] if she chooses to go. Pt aware that [facility] would be able to transport pt to [facility]. Pt would like some time to think and decide. Case discussed with Lacie Vincent APRN, as well as CARE Team.
[2021-06-19 13:08] VITALS: BP 98/52; PULSE 82; RESP 16; TEMP 36.9; O2SAT 95
--- NOTE | 2021-06-19 13:36 | PC.NURSE ---
patient a&ox3, vss, pt spoke to recovery support team-ethan pt denies si/hi, lunch given to pt, will continue to monitor.
--- NOTE | 2021-06-19 15:55 | PC.NURSE ---
pt called for this nurse and stated she wanted to discharge nahum as she had to walk up the street to catch a bus for 4 pm, pt refusing to wait for provider to do appropriate discharge, pt was brought out to security to obtain her clothes from decon to discharge, will notify provider when he is available and out of another patients room.
== END 2021-06-19 16:05 | disposition home or self-care (01) ==
PROVIDERS: Emergency Provider Emergency Medicine Emergency Medical Services; PCP Internal Medicine
DX: F11.99 Opioid use, unspecified with unspecified opioid-induced disorder (principal); F31.9 Bipolar disorder, unspecified; F17.210 Nicotine dependence, cigarettes, uncomplicated; Z79.899 Other long term (current) drug therapy
CPT/HCPCS: 99284

== ENCOUNTER 2021-07-19 08:24 | Emergency (ER) | payer OTHER, SELFPAY ==
--- NOTE | ~2021-07-19 | US_ITS ---
EXAMINATION: US VENOUS WITH DOPPLER UPPER EXTREMITY, LEFT CLINICAL INFORMATION: Bilateral upper extremity pain and swelling COMPARISON: None TECHNIQUE: Ultrasound of the left upper extremity is performed using compression sonography and color and pulse Doppler flow with assessment of augmentation of flow. There is also imaging and Doppler assessment of the jugular and subclavian veins. Spectral analysis with color-flow imaging is performed. FINDINGS: The left internal jugular, subclavian, axillary, brachial, basilic and cephalic veins are patent bilaterally. There is edema of the soft tissues, particularly at the antecubital fossa. There is a complex fluid collection seen in the left antecubital fossa, partially solid partially cystic, that measures 0.9 x 0.8 x 1.4 cm. Differential would include an abscess and changes related to trauma/hematoma. US/US venous duplex UE LT IMPRESSION: No DVT demonstrated in the left upper extremity. 0.9 x 0.8 x 1.4 cm complex fluid collection in the antecubital fossa.
--- NOTE | ~2021-07-19 | US_ITS ---
EXAMINATION: US VENOUS WITH DOPPLER UPPER EXTREMITY, RIGHT CLINICAL INFORMATION: Swelling antecubital fossa. COMPARISON: None TECHNIQUE: Ultrasound of the right upper extremity is performed using compression sonography and color and pulse Doppler flow with assessment of augmentation of flow. There is also imaging and Doppler assessment of the jugular and subclavian veins. Spectral analysis with color-flow imaging is performed. FINDINGS: Respiratory variation, normal compression, and augmented flow are noted throughout the right upper extremity including the axillary, brachial, cubital, and radial and ulnar veins. There is normal flow in the internal jugular and subclavian veins. There is no visible deep or superficial thrombophlebitis. There is some subcutaneous edema in the antecubital fossa corresponding to the symptoms. There is no loculated fluid collection or hyperemia on color Doppler. No skin thickening. US/US venous duplex UE RT IMPRESSION: No DVT demonstrated in the right upper extremity.
--- NOTE | 2021-07-19 08:29 | ED.PSYCH ---
HPI - Psych General Chief Complaint: Psychiatric Symptoms Stated Complaint: CRISIS Time Seen by Provider: 07/19/21 08:29 Source: patient Mode of arrival: ambulatory Limitations: no limitations History of Present Illness MD complaint: suicidal ideation, feels depressed and substance abuse Onset (ago): week(s) Duration: constant History of same: Yes Relieving factors: none Exacerbating factors: drug use Context: recent drug abuse Associated psychiatric symptoms: depression and suicidal ideation Associated symptoms: other (IVDA sites are swollen) Treatments prior to arrival: none If self harm: admits thoughts of self harm Related Data Previous Rx's Medication Instructions Recorded cephalexin 500 mg capsule 500 mg PO TID 7 Days #21 cap 07/19/21 doxycycline hyclate 100 mg capsule 100 mg PO BID 7 Days #14 cap 07/19/21 Allergies Allergy/AdvReac Type Severity Reaction Status Date / Time No Known Allergies Allergy Verified 11/30/20 15:03 Review of Systems Review of Systems: Constitutional : No Fever, No Chills ENT/Mouth : No sore throat, No Rhinorrhea Eyes: No Eye Pain, No Swelling, No Redness Cardiovascular : No Chest Pain, No SOB Respiratory : No Cough, No Sputum, No Wheezing Gastrointestinal : No Nausea, No Vomiting, No Diarrhea Genitourinary : No Dysuria, No Urinary Frequency, No Hematuria, Musculoskeletal : No joint pain, No Myalgias, No Joint Swelling Skin : pos Skin Lesions, pos rash Neuro : No Weakness, No Numbness, No Dizziness, No Headache Psych : pos Anxiety/Panic, pos Depression, pos SI Heme/Lymph: No Bruising, No Bleeding,No Lymphadenopathy Endocrine : No Polyuria, No Polydipsia All other systems reviewed and are negative [facility] Past Medical History Attestation statement: The following information was validated with the patient. Medical History Bipolar 2 disorder, major depressive episode Bulimia Chronic post-traumatic stress disorder (PTSD) Hepatitis C MDD (major depressive disorder), recurrent episode, severe Opioid use disorder Substance abuse Surgical History No significant past surgical history Family History Family History Father Liver cancer Mother No problems noted. Family/Other Cancer Depression Social History Social History Household Members: None Housing: Homeless Do you presently have visiting nurse or other home services: No Alcohol intake: never Patient Tobacco Use Status: Current everyday Tobacco user Tobacco use type: Cigarette Cigarette Packs Per Day: 0.25 Cigarettes Per Day: 5.0 Years Smoked: 17 e-Cigarette/Vaping Use: Never Used Second Hand Smoke Exposure: No Use of substances other than those prescribed or required for medical reasons: Yes Substance Use Type: Crack/Cocaine and Heroin Advance Directives: Yes Advance Directives Information Provided: No Advance Directives on File: No service: No Sexual orientation: Don't Know Physical Exam Vital Signs: Vital Signs: Last Vital Signs Temp 99.9 F 07/19/21 08:35 Pulse 100 07/19/21 08:35 Resp 16 07/19/21 08:35 BP 120/85 07/19/21 08:35 Pulse Ox 97 07/19/21 08:35 Body Mass Index 27.3 Appearance: Alert. Oriented X3. No acute distress. Anxious Eyes: Pupils equal, round and reactive to light. ENT: Pharynx normal. Neck: Normal inspection. Neck supple. CVS: Normal heart rate and rhythm. Pulses normal. Respiratory: No respiratory distress. Breath sounds normal. Abdomen: Soft and nontender. Skin: Skin warm and dry. Normal skin color. bilateral ACs ropy raised areas that are mildly red and moderately swollen ?thrombophlebitis vs abscess distal NV intact, full ROM Of elbows - areas of her injections sites Extremities: No lower extremity edema. Neuro: Oriented X 3. No motor deficit. No sensory deficit. CN2-12 intact Psych: pos depression, pos SI Course Course Course Narrative: no DVT< no WBC count, neg lactic acid, no abscess R AC likely chronic use and possible hematoma, L AC 1x1 cm abscess - will hold I/D at this time given size she was given IV antibiotics will switch to PO and refer to [facility] Physician observation started at 1127am Patient placed in physician observation because the patient needed more time for [facility] evaluation. At the time observation was started the patient's vitals were stable, patient is alert and oriented but slightly anxious, Neuro: nonfocal, CV RRR, Lungs clear Physician observation ended at 2pm Patient seen and cleared by crisis. Plan is to follow up as outpatient. NAD, lungs clear, CV RRR, Abd nontender, Neuro intact. Disposition is for home. MDM - Psych MDM Narrative Medical decision making narrative: 35 yo female with hx of IVDA and mental health issues comes in with SI - her bilateral AC injection sites look like either abscess vs thrombophlebitis - labs, cultures, US to evaluate area for DVT, IV vancomycin and zosyn once medically cleared will refer to [facility] Lab Data Result diagrams: 07/19/21 09:29 07/19/21 09:28 Labs: Lab Results 07/19/21 07/19/21 07/19/21 Range/Units 08:55 09:28 09:29 WBC 8.3 (4.8-10.8) X10*3/uL RBC 3.57 L (4.20-5.50) X10*6/uL Hgb 9.2 L D (12.0-16.0) g/dl Hct 29.4 L D (37-47) % MCV 82.4 (80-98) fL MCH 25.8 L (27.0-33.0) pg MCHC 31.3 (31.0-35.0) g/dl RDW 16.9 H (11.0-16.0) % Plt Count TNP MPV Not Reportable Immature Gran % (Auto) 0.5 H (0.0-0.4) % Neut % (Auto) 62.5 (45-73) % Lymph % (Auto) 30.8 (20-40) % Centre % (Auto) 5.4 (2-11) % Eos % (Auto) 0.2 (0-4) % Baso % (Auto) 0.6 (0-2) % Lymph # (Auto) 2.5 (1.2-4.9) X10*3/uL Centre # (Auto) 0.5 (0.1-1.2) X10*3/uL Eos # (Auto) 0.0 (0.0-0.4) X10*3/uL Baso # (Auto) 0.1 (0.0-0.2) X10*3/uL Abs Immat Gran (auto) 0.04 H (0.00-0.03) X10*3/uL Absolute Neuts (auto) 5.2 (2.0-8.3) X10*3/uL Absolute Nucleated RBC 0.000 (0.0-0.012) X10*3/uL Nucleated RBC % (auto) 0.0 (0.0-0.2) /100WBC Smear Tech's Comments VERIFIED Sodium 136 (135-145) mmol/L Potassium 3.8 (3.3-5.1) mmol/L Chloride 102 (96-108) mmol/L Carbon Dioxide 27 (22-29) mmol/L Anion Gap 11 L (12-20) BUN 5 L (9-16) mg/dL Creatinine 0.74 (0.5-1.4) mg/dL Estim Creat Clear Calc 89.1 Estimated GFR > 60 Random Glucose 85 (60-115) mg/dL Lactic Acid (0.5-2.0) mmol/L Calcium 9.2 (8.4-10.2) mg/dL Total Bilirubin 0.5 (0.0-1.0) mg/dL Direct Bilirubin 0.2 (0.0-0.5) mg/dL AST 35 H D (5-31) U/L ALT 26 (0-31) U/L Alkaline Phosphatase 187 H D (39-117) U/L Total Protein 7.1 (6.5-8.0) g/dL Albumin 3.4 L (3.5-5.0) g/dL Urine Test (NEGATIVE) Urine Opiates Screen (Not Detect) Urine Fentanyl Screen (Not Detect) Ur Barbiturates Screen (Not Detect) Ur Phencyclidine Scrn (Not Detect) Ur Amphetamines Screen (Not Detect) U Benzodiazepines Scrn (Not Detect) Urine Cocaine Screen (Not Detect) U Marijuana (THC) Screen (Not Detect) COVID-19 (JOAO) Negative (Negative) COVID-19 Clin Com See Note 07/19/21 07/19/21 07/19/21 Range/Units 09:31 11:14 11:14 WBC (4.8-10.8) X10*3/uL RBC (4.20-5.50) X10*6/uL Hgb (12.0-16.0) g/dl Hct (37-47) % MCV (80-98) fL MCH (27.0-33.0) pg MCHC (31.0-35.0) g/dl RDW (11.0-16.0) % Plt Count MPV Immature Gran % (Auto) (0.0-0.4) % Neut % (Auto) (45-73) % Lymph % (Auto) (20-40) % Centre % (Auto) (2-11) % Eos % (Auto) (0-4) % Baso % (Auto) (0-2) % Lymph # (Auto) (1.2-4.9) X10*3/uL Centre # (Auto) (0.1-1.2) X10*3/uL Eos # (Auto) (0.0-0.4) X10*3/uL Baso # (Auto) (0.0-0.2) X10*3/uL Abs Immat Gran (auto) (0.00-0.03) X10*3/uL Absolute Neuts (auto) (2.0-8.3) X10*3/uL Absolute Nucleated RBC (0.0-0.012) X10*3/uL Nucleated RBC % (auto) (0.0-0.2) /100WBC Smear Tech's Comments Sodium (135-145) mmol/L Potassium (3.3-5.1) mmol/L Chloride (96-108) mmol/L Carbon Dioxide (22-29) mmol/L Anion Gap (12-20) BUN (9-16) mg/dL Creatinine (0.5-1.4) mg/dL Estim Creat Clear Calc Estimated GFR Random Glucose (60-115) mg/dL Lactic Acid 1.1 (0.5-2.0) mmol/L Calcium (8.4-10.2) mg/dL Total Bilirubin (0.0-1.0) mg/dL Direct Bilirubin (0.0-0.5) mg/dL AST (5-31) U/L ALT (0-31) U/L Alkaline Phosphatase (39-117) U/L Total Protein (6.5-8.0) g/dL Albumin (3.5-5.0) g/dL Urine Test NEGATIVE (NEGATIVE) Urine Opiates Screen POSITIVE H (Not Detect) Urine Fentanyl Screen POSITIVE H (Not Detect) Ur Barbiturates Screen Not Detected (Not Detect) Ur Phencyclidine Scrn Not Detected (Not Detect) Ur Amphetamines Screen Not Detected (Not Detect) U Benzodiazepines Scrn Not Detected (Not Detect) Urine Cocaine Screen POSITIVE H (Not Detect) U Marijuana (THC) Screen Not Detected (Not Detect) COVID-19 (JOAO) (Negative) COVID-19 Clin Com Procedures EJ/Peripheral Line Arm R: Time Out Performed: Yes Skin Cleansed in Sterile Fashion: Yes Size (gauge): 20 IV Secured and Dressing Applied: Yes Patient Tolerated Procedure: well and no complications Discharge Plan Discharge Clinical Impression: Opioid use disorder, Hematoma Cellulitis Qualifiers: Site of cellulitis: extremity Site of cellulitis of extremity: upper extremity Laterality: unspecified laterality Qualified Code(s): L03.119 - Cellulitis of unspecified part of limb Patient Disposition: Home, Self-Care Instructions: Cellulitis (ED), Opioid Use Disorder (ED) Additional Instructions: return to ED for any worsening symptoms or concerns Prescriptions: New doxycycline hyclate 100 mg capsule 100 mg PO BID 7 Days Qty: 14 RF: 0 cephalexin 500 mg capsule 500 mg PO TID 7 Days Qty: 21 RF: 0 Referrals: [facility] [Physician] - 2 days
[2021-07-19 08:35] VITALS: BP 120/85; PULSE 100; RESP 16; TEMP 37.7; O2SAT 97; BMI 27.3
--- NOTE | 2021-07-19 08:43 | PC.NURSE ---
md reports bilateral upper arm ? abscess- plan to ultrasound
--- NOTE | 2021-07-19 08:56 | PC.NURSE ---
pt to room 9 at this time with security and sitter
[2021-07-19 09:21] LABS: COVID-19 Test Negative (Negative)
[2021-07-19 09:52] LABS: Hematocrit 29.4 % (37-47); MANUAL DIFF FLAG SCAN; Mean Corpuscular Volume 82.4 fL (80-98); PLT CLUMP 1; Red Blood Count 3.57 X10*6/uL (4.20-5.50); Red Cell Distribution Width 16.9 % (11.0-16.0); SCAN SMEAR FLAG 1
[2021-07-19 09:53] LABS: Alanine Aminotransferase 26 U/L (0-31); Albumin Level 3.4 g/dL (3.5-5.0); Alkaline Phosphatase 187 U/L (39-117); Anion Gap 11 (12-20); Aspartate Amino Transferase 35 U/L (5-31); Bilirubin Direct 0.2 mg/dL (0.0-0.5); Bilirubin Total 0.5 mg/dL (0.0-1.0); Blood Urea Nitrogen 5 mg/dL (9-16); Calcium 9.2 mg/dL (8.4-10.2); Carbon Dioxide 27 mmol/L (22-29); Chloride 102 mmol/L (96-108); Creatinine Clr Calc Pharmacy 89.1; Estimated Glomerular Filt Rate > 60; Glucose Random 85 mg/dL (60-115); Potassium 3.8 mmol/L (3.3-5.1); Sodium 136 mmol/L (135-145); Total Protein 7.1 g/dL (6.5-8.0)
[2021-07-19 09:55] LABS: Basophils Absolute Auto 0.1 X10*3/uL (0.0-0.2); Basophils Percent Auto 0.6 % (0-2); Eosinophils Percent Auto 0.2 % (0-4); Hemoglobin 9.2 g/dl (12.0-16.0); Imm Gran Abs Auto 0.04 X10*3/uL (0.00-0.03); Imm Gran Pct Auto 0.5 % (0.0-0.4); Lymphocytes Absolute Auto 2.5 X10*3/uL (1.2-4.9); Lymphocytes Percent Auto 30.8 % (20-40); Mean Corpuscular HGB Conc 31.3 g/dl (31.0-35.0); Mean Corpuscular Hemoglobin 25.8 pg (27.0-33.0); Monocytes Absolute Auto 0.5 X10*3/uL (0.1-1.2); Monocytes Percent Auto 5.4 % (2-11); Neutrophils Absolute Auto 5.2 X10*3/uL (2.0-8.3); Neutrophils Percent Auto 62.5 % (45-73); White Blood Count 8.3 X10*3/uL (4.8-10.8)
[2021-07-19 10:11] LABS: SLIDE REVIEW VERIFIED
[2021-07-19 10:21] LABS: Lactic Acid 1.1 mmol/L (0.5-2.0)
[2021-07-19] MEDS: Piperacillin Sodium/Tazobactam 3.375 GM in 0.9 % Sodium Chloride 50 ML IV (11:10)
[2021-07-19] MEDS: 0.9 % Sodium Chloride 1,000 ML 999 ML IV (11:10)
[2021-07-19] MEDS: Acetaminophen 325 MG TABLET 650 MG PO (11:11)
--- NOTE | 2021-07-19 11:15 | PHA.MEDREC ---
Pharmacy Consult ? Medication Reconciliation Pharmacy has completed the medication reconciliation. There are no remarkable issue to provider's attention. Cheli Suh, LaishaD
[2021-07-19 11:43] LABS: Amphetamine Screen Urine Not Detected (Not Detect); Barbiturates, Urine Not Detected (Not Detect); Benzodiazepines Screen Urine Not Detected (Not Detect); Cannabinoid Screen Urine Not Detected (Not Detect); Cocaine Screen Urine POSITIVE (Not Detect); Fentanyl, urine POSITIVE (Not Detect); Opiate Screen Urine POSITIVE (Not Detect); Phencyclidine Screen Urine Not Detected (Not Detect)
[2021-07-19] MEDS: cephALEXin 500 MG CAPSULE PO (12:01)
--- NOTE | 2021-07-19 12:04 | PC.NURSE ---
info sent to [facility]
[2021-07-19 12:14] LABS: UPreg QC Valid YES; Urine Pregnancy NEGATIVE (NEGATIVE)
--- NOTE | 2021-07-19 13:50 | PC.NURSE ---
plan for detox
[2021-07-19 14:00] VITALS: BP 96/45; PULSE 75; RESP 14; TEMP 36.9; O2SAT 95
== END 2021-07-19 14:29 | disposition home or self-care (01) ==
PROVIDERS: Emergency Provider Emergency Medicine; PCP Internal Medicine
DX: R45.851 Suicidal ideations (principal); F11.19 Opioid abuse with unspecified opioid-induced disorder; L03.119 Cellulitis of unspecified part of limb; M79.81 Nontraumatic hematoma of soft tissue; F32.9 Major depressive disorder, single episode, unspecified; F19.10 Other psychoactive substance abuse, uncomplicated; F17.210 Nicotine dependence, cigarettes, uncomplicated; Z20.822 Contact with and (suspected) exposure to COVID-19
CPT/HCPCS: 36410; 36415; 80048; 80076; 80307; 81025; 83605; 85025; 87040; 87635; 93971; 96365; 96367; 99285; J2543